=== PATIENT | male | born 1955 | race Caucasian/White ===

== ENCOUNTER 2017-09-07 23:48 | Inpatient (IN) | payer MEDICARE, OTHER ==
[~2017-09-07] VITALS: Ht 170.2 cm; Wt 112.7 kg
[~2017-09-07 23:48] MED LIST: AMLO10TA4 PO; ASPI-611 PO; ATOR40TA PO; BENA40TA2 PO; CHOL10002 PO; FURO-150 PO; INSU100V13 SQ; METO50TA7 PO; ONDA4TAB6 PO; POTA10TA10 PO
[2017-09-08 00:27] LABS: BASOPHILS % (AUTO) 0.3 % (0-1); EOSINOPHILS # (AUTO) 0.2 X10'3 (0-0.9); HEMATOCRIT 46.8 % (42.0-52.0); HEMOGLOBIN 15.7 g/dl (14.0-17.9); LYMPHOCYTES % (AUTO) 25.4 % (21-51); MEAN CORPUSCULAR HEMOGLOBIN 27.5 PG (27.0-31.0); MEAN CORPUSCULAR HGB CONC 33.5 % (33.0-36.5); MEAN CORPUSCULAR VOLUME 81.9 FL (78-98); MEAN PLATELET VOLUME 8.3 FL (7.4-10.4); MONOCYTES # (AUTO) 0.8 X10'3 (0-0.9); MONOCYTES % (AUTO) 19.3 % (2-12); PLATELET COUNT 191 X10'3 (140-440); RED BLOOD COUNT 5.71 X10'6 (4.70-6.10); RED CELL DISTRIBUTION WIDTH 15.5 % (11.5-14.5)
[2017-09-08] MEDS ORDERED: aspirin 325mg tablet PO ONE (00:40)
[2017-09-08 00:47] LABS: INR 0.9 INR; PARTIAL THROMBOPLASTIN TIME 27 SECONDS (22-32); PROTHROMBIN TIME 9.6 SECONDS (9.0-12.0)
[2017-09-08 00:55] LABS: ALANINE AMINOTRANSFERASE 28 U/L (12-78); ALBUMIN 3.1 G/DL (3.4-5.0); ALBUMIN/GLOBULIN RATIO 0.8 (1.1-1.5); ALKALINE PHOSPHATASE 153 IU/L (46-116); ANION GAP 7 (8-16); ASPARTATE AMINO TRANSFERASE 30 U/L (10-37); BILIRUBIN,TOTAL 0.4 MG/DL (0.1-1.0); BLOOD UREA NITROGEN 25 MG/DL (7-18); BUN/CREATININE RATIO 17.1 (5.4-32.0); CALCIUM 8.5 MG/DL (8.5-10.1); CHLORIDE 106 MMOL/L (99-107); CREATININE 1.46 MG/DL (0.60-1.10); GLUCOSE 272 MG/DL (70-104); POTASSIUM 3.6 MMOL/L (3.5-5.1); SODIUM 141 MMOL/L (135-145); TOTAL CARBON DIOXIDE 28.2 MMOL/L (24-32); TOTAL PROTEIN 6.8 G/DL (6.4-8.2); eGFR 49 ML/MIN
[2017-09-08 01:07] LABS: ETHANOL < 0.010 GM/DL (0.0-0.010)
[2017-09-08 02:54] LABS: URINE AMPHETAMINE SCREEN NEGATIVE (Neg); URINE BARBITUATE SCREEN NEGATIVE (Neg); URINE BENZODIAZEPINES SCREEN NEGATIVE (Neg); URINE CANNABINOID SCREEN NEGATIVE (Neg); URINE COCAINE SCREEN NEGATIVE (Neg); URINE METHADONE SCREEN NEGATIVE (Neg); URINE OPIATE SCREEN NEGATIVE (Neg); URINE PHENCYCLIDINE SCREEN NEGATIVE (Neg)
[2017-09-08] MEDS ORDERED: ondansetron/PF 4mg/2ml inj IV PRN (02:55)
[2017-09-08] MEDS ORDERED: magnesium hydroxide 30ml (MOM) UD suspension PO PRN (02:55)
[2017-09-08] MEDS ORDERED: acetaminophen 325mg tablet PO PRN ×2 (02:55)
[2017-09-08] MEDS ORDERED: mag hydrox/Alum hydrox/simeth 30ml oral suspension PO PRN (02:55)
[2017-09-08] MEDS ORDERED: insulin Lispro (HumaLOG) vial - multi-dose SQ SCH (03:05)
[2017-09-08] MEDS ORDERED: dextrose ORAL solution 15 GM/59 ML bottle PO PRN ×2 (03:05)
[2017-09-08] MEDS ORDERED: MESSAGE TO PHARMACY PO ONE (03:05)
[2017-09-08] MEDS ORDERED: dextrose 50%-water 50ml dispensing syringe IV PRN ×2 (03:05)
[2017-09-08] MEDS ORDERED: glucagon, human recombinant 1mg kit SUBCUT PRN (03:05)
[2017-09-08 04:00] VITALS: BP 155/74
[2017-09-08 05:00] VITALS: BP 135/73
[2017-09-08] MEDS: insulin pump.resvr SQ SCH ×4 (07:00→21:37)
[2017-09-08] MEDS: vitamin D (cholecalciferol) 1,000 unit tablet PO SCH (07:53)
[2017-09-08] MEDS: atorvastatin 20mg tablet PO SCH (07:55)
[2017-09-08] MEDS: metoprolol succinate 25mg (24-HOUR) SR. Tablet PO SCH (07:56)
[2017-09-08] MEDS ORDERED: aspirin 325mg tablet PO SCH (08:30)
[2017-09-08 10:00] VITALS: BP 132/69
[2017-09-08] MEDS ORDERED: niCARDipine in sodium Chloride, iso-osm 20mg/200ml bag IV ONE (10:00)
[2017-09-08] MEDS: furosemide 20MG tablet PO SCH (11:06)
[2017-09-08] MEDS: aspirin 81mg tab.chew PO SCH (11:06)
[2017-09-08] MEDS: LORazepam 2 mg/ml vial IV PRN (14:45)
[2017-09-08 18:00] VITALS: BP 151/85
[2017-09-08] MEDS ORDERED: Insulin Detemir pen SQ SCH (21:00)
[2017-09-08 22:00] VITALS: BP 131/53
[2017-09-09 02:00] VITALS: BP 137/66
[2017-09-09 05:00] VITALS: BP 131/64
[2017-09-09] MEDS: insulin pump.resvr SQ SCH ×4 (07:00→21:03)
[2017-09-09 07:03] LABS: BASOPHILS % (AUTO) 0.2 % (0-1); EOSINOPHILS # (AUTO) 0.1 X10'3 (0-0.9); EOSINOPHILS % (AUTO) 2.2 % (0-6); HEMATOCRIT 47.6 % (42.0-52.0); HEMOGLOBIN 15.9 g/dl (14.0-17.9); LYMPHOCYTES # (AUTO) 0.8 X10'3 (1.1-4.8); LYMPHOCYTES % (AUTO) 14.3 % (21-51); MEAN CORPUSCULAR HEMOGLOBIN 27.2 PG (27.0-31.0); MEAN CORPUSCULAR HGB CONC 33.3 % (33.0-36.5); MEAN CORPUSCULAR VOLUME 81.7 FL (78-98); MEAN PLATELET VOLUME 8.6 FL (7.4-10.4); MONOCYTES # (AUTO) 0.7 X10'3 (0-0.9); MONOCYTES % (AUTO) 12.5 % (2-12); NEUTROPHILS # (AUTO) 4.2 X10'3 (1.8-7.7); NEUTROPHILS % (AUTO) 70.8 % (42-75); PLATELET COUNT 176 X10'3 (140-440); RED BLOOD COUNT 5.83 X10'6 (4.70-6.10); RED CELL DISTRIBUTION WIDTH 15.8 % (11.5-14.5); WHITE BLOOD COUNT 5.9 X10'3 (4.5-11.0)
[2017-09-09] MEDS: vitamin D (cholecalciferol) 1,000 unit tablet PO SCH (07:47)
[2017-09-09] MEDS: atorvastatin 20mg tablet PO SCH (07:47)
[2017-09-09] MEDS: metoprolol succinate 25mg (24-HOUR) SR. Tablet PO SCH (07:47)
[2017-09-09] MEDS: aspirin 81mg tab.chew PO SCH (07:47)
[2017-09-09] MEDS: furosemide 20MG tablet PO SCH (07:48)
[2017-09-09] MEDS ORDERED: furosemide 20MG tablet PO SCH (08:00)
[2017-09-09 08:15] LABS: ALBUMIN 3.1 G/DL (3.4-5.0); ANION GAP 13 (8-16); BLOOD UREA NITROGEN 18 MG/DL (7-18); BUN/CREATININE RATIO 12.9 (5.4-32.0); CALCIUM 8.3 MG/DL (8.5-10.1); CHLORIDE 108 MMOL/L (99-107); CHOL/HDL RATIO 3.5 (0.00-4.99); CHOLESTEROL 112 MG/DL (0-200); GLUCOSE 114 MG/DL (70-104); HDL CHOLESTEROL 32 MG/DL (35-60); LDL CHOLESTEROL 75 MG/DL (50-100); POTASSIUM 3.5 MMOL/L (3.5-5.1); SODIUM 145 MMOL/L (135-145); TOTAL CARBON DIOXIDE 24.5 MMOL/L (24-32); TRIGLYCERIDES 70 MG/DL (20-135); eGFR 51 ML/MIN
[2017-09-09] MEDS ORDERED: aspirin 81mg tab.chew PO SCH (08:30)
[2017-09-09 10:00] VITALS: BP 100/71
[2017-09-09 18:00] VITALS: BP 158/73
[2017-09-09] MEDS ORDERED: enoxaparin 80mg/0.8ml syringe SUBCUT SCH (20:00)
[2017-09-09] MEDS ORDERED: enoxaparin 30mg/0.3ml syringe SUBCUT SCH (20:00)
[2017-09-09 22:00] VITALS: BP 125/57
[2017-09-10 02:00] VITALS: BP 135/81
[2017-09-10 05:00] VITALS: BP 135/71
[2017-09-10 06:22] LABS: BASOPHILS % (AUTO) 0.3 % (0-1); EOSINOPHILS # (AUTO) 0.1 X10'3 (0-0.9); EOSINOPHILS % (AUTO) 2.2 % (0-6); HEMATOCRIT 47.5 % (42.0-52.0); HEMOGLOBIN 15.9 g/dl (14.0-17.9); LYMPHOCYTES # (AUTO) 0.8 X10'3 (1.1-4.8); LYMPHOCYTES % (AUTO) 15.3 % (21-51); MEAN CORPUSCULAR HEMOGLOBIN 27.2 PG (27.0-31.0); MEAN CORPUSCULAR HGB CONC 33.6 % (33.0-36.5); MEAN CORPUSCULAR VOLUME 80.8 FL (78-98); MEAN PLATELET VOLUME 9.1 FL (7.4-10.4); MONOCYTES # (AUTO) 0.8 X10'3 (0-0.9); MONOCYTES % (AUTO) 15.1 % (2-12); NEUTROPHILS # (AUTO) 3.7 X10'3 (1.8-7.7); NEUTROPHILS % (AUTO) 67.1 % (42-75); PLATELET COUNT 166 X10'3 (140-440); RED BLOOD COUNT 5.87 X10'6 (4.70-6.10); RED CELL DISTRIBUTION WIDTH 15.5 % (11.5-14.5); WHITE BLOOD COUNT 5.5 X10'3 (4.5-11.0)
[2017-09-10 06:45] LABS: ALBUMIN 2.9 G/DL (3.4-5.0); ANION GAP 10 (8-16); BLOOD UREA NITROGEN 23 MG/DL (7-18); BUN/CREATININE RATIO 16.3 (5.4-32.0); CALCIUM 8.6 MG/DL (8.5-10.1); CHLORIDE 104 MMOL/L (99-107); CREATININE 1.41 MG/DL (0.60-1.10); GLUCOSE 248 MG/DL (70-104); POTASSIUM 3.7 MMOL/L (3.5-5.1); SODIUM 141 MMOL/L (135-145); TOTAL CARBON DIOXIDE 27.1 MMOL/L (24-32); eGFR 51 ML/MIN
[2017-09-10] MEDS: insulin pump.resvr SQ SCH ×4 (07:00→21:31)
[2017-09-10] MEDS: atorvastatin 20mg tablet PO SCH (07:51)
[2017-09-10] MEDS: vitamin D (cholecalciferol) 1,000 unit tablet PO SCH (07:51)
[2017-09-10] MEDS: metoprolol succinate 25mg (24-HOUR) SR. Tablet PO SCH (07:51)
[2017-09-10] MEDS: furosemide 20MG tablet PO SCH (07:52)
[2017-09-10] MEDS: LORazepam 2 mg/ml vial IV PRN (09:20)
[2017-09-10] MEDS: apixaban 2.5mg tablet PO SCH ×2 (09:20→19:53)
[2017-09-10 14:00] VITALS: BP 152/80
[2017-09-10 18:00] VITALS: BP 150/86
[2017-09-10 22:00] VITALS: BP 137/83
[2017-09-11 02:00] VITALS: BP 134/73
[2017-09-11 05:00] VITALS: BP 142/82
[2017-09-11 06:16] LABS: BASOPHILS % (AUTO) 0.1 % (0-1); EOSINOPHILS # (AUTO) 0.1 X10'3 (0-0.9); EOSINOPHILS % (AUTO) 1.8 % (0-6); HEMOGLOBIN 16.7 g/dl (14.0-17.9); LYMPHOCYTES % (AUTO) 14.3 % (21-51); MEAN CORPUSCULAR HEMOGLOBIN 27.3 PG (27.0-31.0); MEAN CORPUSCULAR HGB CONC 33.5 % (33.0-36.5); MEAN CORPUSCULAR VOLUME 81.4 FL (78-98); MEAN PLATELET VOLUME 8.8 FL (7.4-10.4); MONOCYTES # (AUTO) 0.7 X10'3 (0-0.9); MONOCYTES % (AUTO) 10.5 % (2-12); NEUTROPHILS % (AUTO) 73.3 % (42-75); PLATELET COUNT 164 X10'3 (140-440); RED BLOOD COUNT 6.14 X10'6 (4.70-6.10); RED CELL DISTRIBUTION WIDTH 15.5 % (11.5-14.5); WHITE BLOOD COUNT 6.8 X10'3 (4.5-11.0)
[2017-09-11 06:42] LABS: ALBUMIN 2.8 G/DL (3.4-5.0); ANION GAP 9 (8-16); BLOOD UREA NITROGEN 23 MG/DL (7-18); BUN/CREATININE RATIO 17.2 (5.4-32.0); CALCIUM 8.8 MG/DL (8.5-10.1); CHLORIDE 105 MMOL/L (99-107); CREATININE 1.34 MG/DL (0.60-1.10); GLUCOSE 241 MG/DL (70-104); POTASSIUM 3.7 MMOL/L (3.5-5.1); SODIUM 140 MMOL/L (135-145); TOTAL CARBON DIOXIDE 26.1 MMOL/L (24-32); eGFR 54 ML/MIN
[2017-09-11] MEDS: insulin pump.resvr SQ SCH ×3 (07:00→21:00)
[2017-09-11] MEDS: apixaban 2.5mg tablet PO SCH ×2 (09:57→19:28)
[2017-09-11] MEDS: vitamin D (cholecalciferol) 1,000 unit tablet PO SCH (09:57)
[2017-09-11] MEDS: atorvastatin 20mg tablet PO SCH (09:57)
[2017-09-11] MEDS: metoprolol succinate 25mg (24-HOUR) SR. Tablet PO SCH (09:57)
[2017-09-11] MEDS: furosemide 20MG tablet PO SCH (09:57)
[2017-09-11 10:00] VITALS: BP 139/81
[2017-09-11 18:30] VITALS: BP 149/80
[2017-09-11 22:00] VITALS: BP 153/79
[2017-09-12 05:00] VITALS: BP 156/77
[2017-09-12 06:08] LABS: BASOPHILS % (AUTO) 0.2 % (0-1); EOSINOPHILS # (AUTO) 0.1 X10'3 (0-0.9); EOSINOPHILS % (AUTO) 2.4 % (0-6); HEMOGLOBIN 15.8 g/dl (14.0-17.9); LYMPHOCYTES % (AUTO) 18.6 % (21-51); MEAN CORPUSCULAR HEMOGLOBIN 27.2 PG (27.0-31.0); MEAN CORPUSCULAR HGB CONC 33.7 % (33.0-36.5); MEAN CORPUSCULAR VOLUME 80.8 FL (78-98); MEAN PLATELET VOLUME 8.9 FL (7.4-10.4); MONOCYTES # (AUTO) 0.5 X10'3 (0-0.9); MONOCYTES % (AUTO) 9.8 % (2-12); NEUTROPHILS # (AUTO) 3.8 X10'3 (1.8-7.7); PLATELET COUNT 174 X10'3 (140-440); RED BLOOD COUNT 5.82 X10'6 (4.70-6.10); RED CELL DISTRIBUTION WIDTH 14.8 % (11.5-14.5); WHITE BLOOD COUNT 5.5 X10'3 (4.5-11.0)
[2017-09-12 06:15] LABS: ALBUMIN 2.6 G/DL (3.4-5.0); ANION GAP 12 (8-16); BLOOD UREA NITROGEN 25 MG/DL (7-18); BUN/CREATININE RATIO 19.4 (5.4-32.0); CALCIUM 8.1 MG/DL (8.5-10.1); CHLORIDE 105 MMOL/L (99-107); CREATININE 1.29 MG/DL (0.60-1.10); GLUCOSE 221 MG/DL (70-104); POTASSIUM 3.4 MMOL/L (3.5-5.1); SODIUM 143 MMOL/L (135-145); TOTAL CARBON DIOXIDE 25.6 MMOL/L (24-32); eGFR 56 ML/MIN
[2017-09-12] MEDS: insulin pump.resvr SQ SCH ×2 (07:00→12:00)
[2017-09-12] MEDS: vitamin D (cholecalciferol) 1,000 unit tablet PO SCH (08:19)
[2017-09-12] MEDS: apixaban 2.5mg tablet PO SCH (08:19)
[2017-09-12] MEDS: atorvastatin 20mg tablet PO SCH (08:19)
[2017-09-12] MEDS: metoprolol succinate 25mg (24-HOUR) SR. Tablet PO SCH (08:19)
[2017-09-12] MEDS: furosemide 20MG tablet PO SCH (08:20)
[2017-09-12 10:00] VITALS: BP 132/82
== END 2017-09-12 13:00 | DRG 65 ==
LOC: ER 23:49 → ED HOLD 09-08 02:52 → ORTHO 4S 09-08 03:30
PROVIDERS: ADMIT Internal Medicine; ATTEND Emergency Medicine
DX: I63.9 Cerebral infarction, unspecified (principal); I48.92 Unspecified atrial flutter; E10.22 Type 1 diabetes mellitus with diabetic chronic kidney disease; E10.40 Type 1 diabetes mellitus with diabetic neuropathy, unspecified; E10.65 Type 1 diabetes mellitus with hyperglycemia; G81.94 Hemiplegia, unspecified affecting left nondominant side; I25.10 Atherosclerotic heart disease of native coronary artery without angina pectoris; I44.7 Left bundle-branch block, unspecified; N18.9 Chronic kidney disease, unspecified; H54.8 Legal blindness, as defined in USA; E78.5 Hyperlipidemia, unspecified; I12.9 Hypertensive chronic kidney disease with stage 1 through stage 4 chronic kidney disease, or unspecified chronic kidney disease; R29.810 Facial weakness; R47.81 Slurred speech; I25.2 Old myocardial infarction; Z95.1 Presence of aortocoronary bypass graft; Z90.89 Acquired absence of other organs; Z79.82 Long term (current) use of aspirin; Z79.01 Long term (current) use of anticoagulants
CPT/HCPCS: 36415; 70450; 70544; 70551; 71045; 80048; 80053; 80061; 80305; 80320; 82948; 83036; 84439; 84443; 85025; 85610; 85730; 87070; 92616; 93005; 93306; 93880; 97110; 97112; 97116; 97161; 97530; 99291; J1650; J2060; J2997

== ENCOUNTER 2018-03-08 13:06 | Inpatient (IN) | payer MEDICARE, OTHER ==
[~2018-03-08] VITALS: Ht 170.2 cm; Wt 90.4 kg
[~2018-03-08 13:06] MED LIST changes: -ONDA4TAB6 PO
[2018-03-08] MEDS ORDERED: diphenhydrAMINE 50 mg/ml inj IM ONE (13:20)
[2018-03-08] MEDS ORDERED: proCHLORperazine 10 MG/2 ml inj IM ONE (13:20)
[2018-03-08] MEDS ORDERED: famotidine 20mg tablet PO ONE (13:25)
[2018-03-08] MEDS ORDERED: normal saline 1000ML IV soln IVB ONE (13:35)
[2018-03-08] MEDS ORDERED: diphenhydrAMINE 50 mg/ml inj IV ONE (14:00)
[2018-03-08] MEDS ORDERED: proCHLORperazine 10 MG/2 ml inj IV ONE (14:00)
[2018-03-08 14:10] LABS: BASOPHILS % (AUTO) 0.1 % (0-1); EOSINOPHILS % (AUTO) 0.2 % (0-6); HEMOGLOBIN 15.7 g/dl (14.0-17.9); LYMPHOCYTES # (AUTO) 0.6 X10'3 (1.1-4.8); LYMPHOCYTES % (AUTO) 4.7 % (21-51); MEAN CORPUSCULAR HGB CONC 33.5 % (33.0-36.5); MEAN CORPUSCULAR VOLUME 83.6 FL (78-98); MEAN PLATELET VOLUME 8.6 FL (7.4-10.4); MONOCYTES # (AUTO) 0.8 X10'3 (0-0.9); MONOCYTES % (AUTO) 6.3 % (2-12); NEUTROPHILS # (AUTO) 11.9 X10'3 (1.8-7.7); NEUTROPHILS % (AUTO) 88.7 % (42-75); PLATELET COUNT 210 X10'3 (140-440); RED BLOOD COUNT 5.62 X10'6 (4.70-6.10); RED CELL DISTRIBUTION WIDTH 15.1 % (11.5-14.5); WHITE BLOOD COUNT 13.4 X10'3 (4.5-11.0)
[2018-03-08 14:30] LABS: ALANINE AMINOTRANSFERASE 35 U/L (12-78); ALBUMIN 3.1 G/DL (3.4-5.0); ALBUMIN/GLOBULIN RATIO 0.8 (1.1-1.5); ALKALINE PHOSPHATASE 118 IU/L (46-116); ANION GAP 7 (8-16); ASPARTATE AMINO TRANSFERASE 36 U/L (10-37); BILIRUBIN,TOTAL 0.8 MG/DL (0.1-1.0); BLOOD UREA NITROGEN 44 MG/DL (7-18); BUN/CREATININE RATIO 23.3 (5.4-32.0); CALCIUM 8.3 MG/DL (8.5-10.1); CHLORIDE 100 MMOL/L (99-107); CREATININE 1.89 MG/DL (0.60-1.10); GLUCOSE 337 MG/DL (70-104); POTASSIUM 3.3 MMOL/L (3.5-5.1); SODIUM 136 MMOL/L (135-145); TOTAL CARBON DIOXIDE 29.1 MMOL/L (24-32); TOTAL PROTEIN 6.9 G/DL (6.4-8.2); eGFR 36 ML/MIN
[2018-03-08] MEDS ORDERED: aspirin 81mg tab.chew PO ONE (14:35)
[2018-03-08 15:41] LABS: ABG BASE EXCESS 0.9 mmol/L (-2.0-3.0); ABG HCO3 23.6 mmol/L (22.0-26.0); ABG OXYGEN SATURATION 94.6 % (95-98); ABG PCO2 (T) 32.8 mmHg (35.0-48.0); ABG PH (T) 7.475 (7.350-7.450); ABG PO2 (T) 68.3 mmHg (83-108); ALLEN'S TEST Positive; FCOHb 0.8 % (0.5-1.5); FMetHb 0.2 % (0.3-1.12); FO2Hb 93.7 % (94-100); TOTAL HEMOGLOBIN 16.1 G/dl (14.0-18.0)
[2018-03-08] MEDS: normal saline 1000ml 1,000 ML IV SCH (15:42)
[2018-03-08] MEDS ORDERED: magnesium hydroxide 30ml (MOM) UD suspension PO PRN (15:45)
[2018-03-08] MEDS ORDERED: ATOR80TA PO (15:45)
[2018-03-08] MEDS ORDERED: potassium Cl 20 mEq SR tablet PO PRN ×2 (15:45)
[2018-03-08] MEDS ORDERED: ondansetron/PF 4mg/2ml inj IV PRN (15:45)
[2018-03-08] MEDS ORDERED: mag hydrox/Alum hydrox/simeth 30ml oral suspension PO PRN (15:45)
[2018-03-08] MEDS ORDERED: acetaminophen 325mg tablet PO PRN ×2 (15:45)
[2018-03-08] MEDS ORDERED: magnesium Cl slow-release 64mg tablet PO PRN (15:45)
[2018-03-08] MEDS ORDERED: potassium Cl 40MEQ/NS 500ml 500 ML IV PRN ×2 (15:45)
[2018-03-08] MEDS ORDERED: magnesium 4gm in 100ml NS 100 ML IV PRN (15:45)
[2018-03-08] MEDS ORDERED: APIX5TAB3 PO (15:45)
[2018-03-08] MEDS ORDERED: magnesium/D5W IVPB 50 ML IV PRN (15:45)
[2018-03-08 16:12] LABS: HEMOGLOBIN A1C 7.6 % (4.5-6.2)
[2018-03-08] MEDS: metoclopramide 10mg tablet PO SCH (17:00)
[2018-03-08 19:00] VITALS: BP 157/78
[2018-03-08] MEDS ORDERED: temazepam 15mg capsule PO PRN (21:00)
[2018-03-08] MEDS ORDERED: atorvastatin 20mg tablet PO SCH (21:00)
[2018-03-08] MEDS: apixaban 5mg tablet PO SCH (21:14)
[2018-03-09] VITALS: BP 124/85
[2018-03-09 02:01] LABS: BASOPHILS % (AUTO) 0.3 % (0-1); EOSINOPHILS % (AUTO) 0.5 % (0-6); HEMATOCRIT 45.6 % (42.0-52.0); HEMOGLOBIN 15.5 g/dl (14.0-17.9); LYMPHOCYTES % (AUTO) 9.7 % (21-51); MEAN CORPUSCULAR HEMOGLOBIN 28.3 PG (27.0-31.0); MEAN CORPUSCULAR VOLUME 83.4 FL (78-98); MEAN PLATELET VOLUME 8.3 FL (7.4-10.4); MONOCYTES % (AUTO) 9.2 % (2-12); NEUTROPHILS # (AUTO) 8.3 X10'3 (1.8-7.7); NEUTROPHILS % (AUTO) 80.3 % (42-75); PLATELET COUNT 198 X10'3 (140-440); RED BLOOD COUNT 5.47 X10'6 (4.70-6.10); RED CELL DISTRIBUTION WIDTH 14.9 % (11.5-14.5); WHITE BLOOD COUNT 10.4 X10'3 (4.5-11.0)
[2018-03-09 02:16] LABS: ALANINE AMINOTRANSFERASE 36 U/L (12-78); ALBUMIN 2.8 G/DL (3.4-5.0); ALBUMIN/GLOBULIN RATIO 0.8 (1.1-1.5); ALKALINE PHOSPHATASE 103 IU/L (46-116); ANION GAP 10 (8-16); ASPARTATE AMINO TRANSFERASE 29 U/L (10-37); BILIRUBIN,TOTAL 0.7 MG/DL (0.1-1.0); BLOOD UREA NITROGEN 33 MG/DL (7-18); CALCIUM 8.2 MG/DL (8.5-10.1); CHLORIDE 108 MMOL/L (99-107); GLUCOSE 173 MG/DL (70-104); POTASSIUM 3.5 MMOL/L (3.5-5.1); SODIUM 144 MMOL/L (135-145); TOTAL CARBON DIOXIDE 26.4 MMOL/L (24-32); TOTAL PROTEIN 6.1 G/DL (6.4-8.2); eGFR 47 ML/MIN
[2018-03-09 02:19] LABS: MAGNESIUM 2.1 MG/DL (1.5-2.4)
[2018-03-09] MEDS: normal saline 1000ml 1,000 ML IV SCH (05:03)
[2018-03-09] MEDS: metoclopramide 10mg tablet PO SCH ×2 (07:00→12:00)
[2018-03-09 07:05] VITALS: BP 148/65
[2018-03-09] MEDS: apixaban 5mg tablet PO SCH (07:10)
[2018-03-09] MEDS ORDERED: aspirin 81mg tablet.DR PO SCH (08:00)
[2018-03-09] MEDS ORDERED: amLODIPine 5mg tablet PO SCH (08:00)
[2018-03-09] MEDS ORDERED: K and/or MAG REPLACEMENT MC SCH (08:00)
[2018-03-09] MEDS ORDERED: enoxaparin 40mg/0.4ml syringe SUBCUT SCH (08:00)
[2018-03-09] MEDS ORDERED: metoprolol succinate 25mg (24-HOUR) SR. Tablet PO SCH (08:00)
[2018-03-09] MEDS ORDERED: [UNRECOGNIZED DRUG - OTHER] SQ SCH (08:00)
[2018-03-09] MEDS ORDERED: lisinopril 20mg tablet PO SCH (08:00)
[2018-03-09] MEDS ORDERED: POTA20TA10 PO (10:42)
[2018-03-09] MEDS ORDERED: FURO20TA4 PO (10:42)
[2018-03-09] MEDS ORDERED: METO10TA3 PO (10:42)
[2018-03-09] MEDS ORDERED: ONDA4TAB6 PO (10:42)
[2018-03-09 11:14] VITALS: BP 151/70
== END 2018-03-09 13:21 | disposition home or self-care (01) | DRG 74 ==
LOC: ER 13:06 → OBSVTOIN 15:42 → ED HOLD 15:42 → SUR 3N 19:10
PROVIDERS: ADMIT Internal Medicine; ATTEND Internal Medicine
DX: E10.43 Type 1 diabetes mellitus with diabetic autonomic (poly)neuropathy (principal); N17.9 Acute kidney failure, unspecified; E10.22 Type 1 diabetes mellitus with diabetic chronic kidney disease; E10.65 Type 1 diabetes mellitus with hyperglycemia; E87.6 Hypokalemia; I25.10 Atherosclerotic heart disease of native coronary artery without angina pectoris; K31.84 Gastroparesis; I50.9 Heart failure, unspecified; K14.6 Glossodynia; N18.3 Chronic kidney disease, stage 3 (moderate); Z66 Do not resuscitate; Z95.1 Presence of aortocoronary bypass graft; I25.2 Old myocardial infarction; Z79.82 Long term (current) use of aspirin; Z79.4 Long term (current) use of insulin; Z79.899 Other long term (current) drug therapy; Z79.01 Long term (current) use of anticoagulants
CPT/HCPCS: 36415; 36600; 71045; 80053; 82803; 82948; 83036; 83605; 83735; 83880; 84145; 84484; 85018; 85025; 85610; 87040; 87070; 93005; 96361; 96374; 96375; 97116; 97161; 99285; J0780; J1200; J7030; J8597

== ENCOUNTER 2018-03-14 04:11 | Outpatient (CLI) | payer MEDICARE, OTHER ==
[~2018-03-14 04:11] MED LIST changes: +APIX5TAB3 PO; -ATOR40TA PO; +ATOR80TA PO; -FURO-150 PO; +FURO20TA4 PO; +ONDA4TAB6 PO; -POTA10TA10 PO; +POTA20TA10 PO
== END 2018-03-14 23:59 | disposition home or self-care (01) ==
LOC: DIABETIC 04:11
PROVIDERS: ATTEND Internal Medicine
DX: E10.9 Type 1 diabetes mellitus without complications (principal); N17.9 Acute kidney failure, unspecified; I25.10 Atherosclerotic heart disease of native coronary artery without angina pectoris; I50.9 Heart failure, unspecified; Z79.01 Long term (current) use of anticoagulants; Z79.82 Long term (current) use of aspirin; Z79.899 Other long term (current) drug therapy; Z79.4 Long term (current) use of insulin
CPT/HCPCS: G0108

== ENCOUNTER 2018-04-20 16:14 | Inpatient (IN) | payer MEDICARE, OTHER ==
[~2018-04-20] VITALS: Ht 170.2 cm; Wt 88.0 kg
[~2018-04-20 16:14] MED LIST changes: -BENA40TA2 PO; +BENA40TA73 PO
[2018-04-20 16:55] LABS: BASOPHILS % (AUTO) 0.3 % (0-1); EOSINOPHILS # (AUTO) 0.1 X10'3 (0-0.9); EOSINOPHILS % (AUTO) 2.2 % (0-6); HEMATOCRIT 46.3 % (42.0-52.0); HEMOGLOBIN 15.5 g/dl (14.0-17.9); LYMPHOCYTES # (AUTO) 1.1 X10'3 (1.1-4.8); LYMPHOCYTES % (AUTO) 17.2 % (21-51); MEAN CORPUSCULAR HEMOGLOBIN 27.7 PG (27.0-31.0); MEAN CORPUSCULAR HGB CONC 33.4 % (33.0-36.5); MEAN CORPUSCULAR VOLUME 82.9 FL (78-98); MEAN PLATELET VOLUME 8.5 FL (7.4-10.4); MONOCYTES # (AUTO) 0.7 X10'3 (0-0.9); MONOCYTES % (AUTO) 11.3 % (2-12); NEUTROPHILS # (AUTO) 4.2 X10'3 (1.8-7.7); PLATELET COUNT 229 X10'3 (140-440); RED BLOOD COUNT 5.58 X10'6 (4.70-6.10); WHITE BLOOD COUNT 6.1 X10'3 (4.5-11.0)
[2018-04-20 17:06] LABS: PARTIAL THROMBOPLASTIN TIME 29 SECONDS (22-32); PROTHROMBIN TIME 9.9 SECONDS (9.0-12.0)
[2018-04-20 17:15] LABS: ALANINE AMINOTRANSFERASE 25 U/L (12-78); ALBUMIN 3.2 G/DL (3.4-5.0); ALBUMIN/GLOBULIN RATIO 0.8 (1.1-1.5); ALKALINE PHOSPHATASE 159 IU/L (46-116); ANION GAP 10 (8-16); ASPARTATE AMINO TRANSFERASE 25 U/L (10-37); BILIRUBIN,TOTAL 0.7 MG/DL (0.1-1.0); BLOOD UREA NITROGEN 25 MG/DL (7-18); BUN/CREATININE RATIO 17.4 (5.4-32.0); CALCIUM 8.9 MG/DL (8.5-10.1); CHLORIDE 105 MMOL/L (99-107); CREATININE 1.44 MG/DL (0.60-1.10); GLUCOSE 253 MG/DL (70-104); POTASSIUM 4.1 MMOL/L (3.5-5.1); SODIUM 141 MMOL/L (135-145); TOTAL CARBON DIOXIDE 25.8 MMOL/L (24-32); TOTAL PROTEIN 7.4 G/DL (6.4-8.2); eGFR 49 ML/MIN
[2018-04-20] MEDS ORDERED: LORazepam 2 mg/ml vial IV ONE (17:20)
[2018-04-20] MEDS ORDERED: levetiracetam inj 1,500 MG in normal saline 100ml IV soln 85 ML IV SCH (17:30)
[2018-04-20] MEDS ORDERED: aspirin 300mg supp.rect RC ONE (17:45)
[2018-04-20] MEDS ORDERED: FURO-150 PO (19:20)
[2018-04-20] MEDS ORDERED: acetaminophen 325mg tablet PO PRN (21:10)
[2018-04-20] MEDS ORDERED: ondansetron/PF 4mg/2ml inj IV PRN (21:10)
[2018-04-20] MEDS ORDERED: mag hydrox/Alum hydrox/simeth 30ml oral suspension PO PRN (21:10)
[2018-04-20] MEDS ORDERED: magnesium hydroxide 30ml (MOM) UD suspension PO PRN (21:10)
[2018-04-20] MEDS ORDERED: non-formulary drug (Insulin Aspart (Novolog) 1 UNITS) SQ SCH (21:10)
[2018-04-20] MEDS ORDERED: insulin Lispro (HumaLOG) vial - multi-dose SQ PRN (21:25)
[2018-04-20] MEDS: normal saline 1000ml 1,000 ML IV SCH (21:54)
[2018-04-20 22:00] VITALS: BP 164/78
[2018-04-20] MEDS ORDERED: apixaban 5mg tablet PO ONE (22:15)
[2018-04-20] MEDS ORDERED: atorvastatin 20mg tablet PO ONE (22:15)
[2018-04-20] MEDS ORDERED: potassium chloride 10mEq ER tablet PO ONE (22:15)
[2018-04-20] MEDS: hydrALAZINE 25 MG tablet PO SCH (23:02)
[2018-04-21 02:00] VITALS: BP 129/62
[2018-04-21 06:00] VITALS: BP 163/77
[2018-04-21] MEDS ORDERED: insulin pump.resvr SQ SCH (07:00)
[2018-04-21] MEDS: insulin pump.resvr SQ SCH ×4 (07:00→21:00)
[2018-04-21] MEDS: metoprolol succinate 25mg (24-HOUR) SR. Tablet PO SCH (09:11)
[2018-04-21] MEDS: levetiracetam inj 1,000 MG in normal saline 100ml IV soln 90 ML IV SCH ×2 (09:11→20:40)
[2018-04-21] MEDS: hydrALAZINE 25 MG tablet PO SCH ×2 (09:12→20:41)
[2018-04-21] MEDS: amLODIPine 5mg tablet PO SCH (09:12)
[2018-04-21] MEDS: lisinopril 20mg tablet PO SCH (09:12)
[2018-04-21] MEDS: potassium chloride 10mEq ER tablet PO SCH (09:12)
[2018-04-21] MEDS: aspirin 81mg tab.chew PO SCH (09:13)
[2018-04-21] MEDS: apixaban 5mg tablet PO SCH ×2 (09:13→20:41)
[2018-04-21] MEDS: heparin, porcine 5000 units/ml vial SQ SCH ×2 (09:37→20:41)
[2018-04-21 10:00] VITALS: BP 143/65
[2018-04-21] MEDS: normal saline 1000ml 1,000 ML IV SCH (17:06)
[2018-04-21 18:00] VITALS: BP 130/64
[2018-04-21 20:39] VITALS: BP 149/74
[2018-04-21] MEDS ORDERED: atorvastatin 20mg tablet PO SCH (21:00)
[2018-04-21 22:00] VITALS: BP 143/73
[2018-04-22] MEDS: normal saline 1000ml 1,000 ML IV SCH (01:22)
[2018-04-22 06:00] VITALS: BP 140/69
[2018-04-22] MEDS: insulin pump.resvr SQ SCH ×2 (07:00→11:45)
[2018-04-22] MEDS: heparin, porcine 5000 units/ml vial SQ SCH (08:00)
[2018-04-22] MEDS: levetiracetam inj 1,000 MG in normal saline 100ml IV soln 90 ML IV SCH (08:19)
[2018-04-22] MEDS: apixaban 5mg tablet PO SCH (08:19)
[2018-04-22] MEDS: aspirin 81mg tab.chew PO SCH (08:19)
[2018-04-22] MEDS: hydrALAZINE 25 MG tablet PO SCH (08:20)
[2018-04-22] MEDS: metoprolol succinate 25mg (24-HOUR) SR. Tablet PO SCH (08:21)
[2018-04-22] MEDS: lisinopril 20mg tablet PO SCH (08:21)
[2018-04-22] MEDS: potassium chloride 10mEq ER tablet PO SCH (08:21)
[2018-04-22] MEDS: amLODIPine 5mg tablet PO SCH (08:21)
[2018-04-22] MEDS ORDERED: KEP500T PO (10:33)
== END 2018-04-22 12:00 | disposition home or self-care (01) | DRG 101 ==
LOC: ER 16:15 → ORTHO 4S 21:06
PROVIDERS: ADMIT Internal Medicine; ATTEND Family Medicine
PROC: 4A10X4Z Monitoring of Central Nervous Electrical Activity, External Approach (ICD-10-PCS; principal; 2018-04-20)
DX: G40.901 Epilepsy, unspecified, not intractable, with status epilepticus (principal); I13.0 Hypertensive heart and chronic kidney disease with heart failure and stage 1 through stage 4 chronic kidney disease, or unspecified chronic kidney disease; I48.92 Unspecified atrial flutter; I69.354 Hemiplegia and hemiparesis following cerebral infarction affecting left non-dominant side; N18.9 Chronic kidney disease, unspecified; E10.65 Type 1 diabetes mellitus with hyperglycemia; E10.22 Type 1 diabetes mellitus with diabetic chronic kidney disease; I25.10 Atherosclerotic heart disease of native coronary artery without angina pectoris; I48.91 Unspecified atrial fibrillation; R47.81 Slurred speech; I50.9 Heart failure, unspecified; Z66 Do not resuscitate; Z96.41 Presence of insulin pump (external) (internal); Z96.0 Presence of urogenital implants; I25.2 Old myocardial infarction; Z95.1 Presence of aortocoronary bypass graft; Z79.82 Long term (current) use of aspirin; Z79.899 Other long term (current) drug therapy; Z79.01 Long term (current) use of anticoagulants
CPT/HCPCS: 36415; 70450; 71045; 80053; 82948; 85025; 85610; 85730; 87070; 92616; 93005; 95816; 96365; 96375; 97116; 97161; 97530; 99291; A6212; J1644; J1953; J2060; J7030

== ENCOUNTER 2018-05-16 02:44 | Outpatient (CLI) | payer MEDICARE, OTHER ==
[~2018-05-16 02:44] MED LIST changes: +FURO-150 PO; -FURO20TA4 PO; +KEP500T PO; -ONDA4TAB6 PO
== END 2018-05-16 23:59 | disposition home or self-care (01) ==
LOC: DIABETIC 02:44
PROVIDERS: ATTEND Internal Medicine
DX: E10.22 Type 1 diabetes mellitus with diabetic chronic kidney disease (principal); I12.9 Hypertensive chronic kidney disease with stage 1 through stage 4 chronic kidney disease, or unspecified chronic kidney disease; N18.9 Chronic kidney disease, unspecified; Z79.82 Long term (current) use of aspirin; Z85.46 Personal history of malignant neoplasm of prostate
CPT/HCPCS: G0108

== ENCOUNTER 2018-08-23 01:25 | Outpatient (CLI) | payer MEDICARE, OTHER | END 2018-08-23 23:59 | disposition home or self-care (01) | LOC: DIABETIC 01:25 | PROVIDERS: ATTEND Internal Medicine | DX: E10.22 Type 1 diabetes mellitus with diabetic chronic kidney disease (principal); I12.9 Hypertensive chronic kidney disease with stage 1 through stage 4 chronic kidney disease, or unspecified chronic kidney disease; N18.9 Chronic kidney disease, unspecified; I25.2 Old myocardial infarction; Z79.82 Long term (current) use of aspirin; Z79.4 Long term (current) use of insulin; Z79.899 Other long term (current) drug therapy | CPT/HCPCS: G0108 ==

== ENCOUNTER 2018-12-12 02:31 | Outpatient (CLI) | payer MEDICARE | END 2018-12-12 23:59 | disposition home or self-care (01) | LOC: DIABETIC 02:31 | PROVIDERS: ATTEND Internal Medicine | DX: E10.22 Type 1 diabetes mellitus with diabetic chronic kidney disease (principal); I12.9 Hypertensive chronic kidney disease with stage 1 through stage 4 chronic kidney disease, or unspecified chronic kidney disease; N18.9 Chronic kidney disease, unspecified; Z79.82 Long term (current) use of aspirin; Z79.4 Long term (current) use of insulin | CPT/HCPCS: G0108 ==

== ENCOUNTER 2018-12-14 20:06 | Inpatient (IN) | payer MEDICARE, BC ==
[~2018-12-14] VITALS: Ht 180.3 cm; Wt 97.7 kg
[2018-12-14] MEDS ORDERED: LORazepam 2 mg/ml vial ONE (20:17)
[2018-12-14] MEDS ORDERED: LORazepam 2 mg/ml vial IV ONE (20:20)
[2018-12-14] MEDS ORDERED: hydrALAZINE 20mg/ml inj. IV ONE (20:20)
[2018-12-14] MEDS ORDERED: propofol 1000mg/100ml bottle 100 ML IV ONE (20:30)
--- NOTE | 2018-12-14 20:33 | NUR ---
pt continues to have seizure activity localized to the left side. MD aware - pt has been given 1mg ativan at 2009, 1 mg ativan at 2014, 2mg ativan at 2019 and 10mg hydralizine at 2021. MD requesting 100mg propofol drawn up to be administered by MD - medication available at bedside. RT has been paged.
[2018-12-14 20:36] LABS: BASOPHILS # (AUTO) 0.1 X10'3 (0-0.2); BASOPHILS % (AUTO) 0.4 % (0-1); EOSINOPHILS # (AUTO) 0.1 X10'3 (0-0.9); EOSINOPHILS % (AUTO) 0.9 % (0-6); HEMATOCRIT 47.6 % (42.0-52.0); HEMOGLOBIN 16.1 g/dl (14.0-17.9); LYMPHOCYTES # (AUTO) 1.2 X10'3 (1.1-4.8); LYMPHOCYTES % (AUTO) 9.9 % (21-51); MEAN CORPUSCULAR HEMOGLOBIN 27.7 PG (27.0-31.0); MEAN CORPUSCULAR HGB CONC 33.9 g/dL (33.0-36.5); MEAN CORPUSCULAR VOLUME 81.6 FL (78-98); MEAN PLATELET VOLUME 8.4 FL (7.4-10.4); MONOCYTES # (AUTO) 1.4 X10'3 (0-0.9); MONOCYTES % (AUTO) 11.1 % (2-12); NEUTROPHILS # (AUTO) 9.5 X10'3 (1.8-7.7); NEUTROPHILS % (AUTO) 77.7 % (42-75); PLATELET COUNT 249 X10'3 (140-440); RED BLOOD COUNT 5.83 X10'6 (4.70-6.10); RED CELL DISTRIBUTION WIDTH 15.4 % (11.5-14.5); WHITE BLOOD COUNT 12.3 X10'3 (4.5-11.0)
--- NOTE | 2018-12-14 20:37 | NUR ---
20MG PROPOFOL PUSHED BY MD CANTU - RT AT BEDSIDE, PT 02 SATS 100% ON NRMB
[2018-12-14] MEDS ORDERED: phenytoin sod inj 1,000 MG in normal saline 100ml IV soln 80 ML IV ONE (20:45)
--- NOTE | 2018-12-14 20:45 | NUR ---
AT BEDSIDE STATES PT HAS SOME NUMBNESS AND LOSS OF MOTION IN LEFT ARM FROM PREVIOUS CVA - NO TROUBLE WITH LEFT LEG, PT NORMALLY HAS CLEAR SPEECH
[2018-12-14] MEDS ORDERED: NS IV ONE (20:50)
[2018-12-14] MEDS ORDERED: VALPROATE SODIUM IV ONE (20:50)
[2018-12-14 20:51] LABS: ALANINE AMINOTRANSFERASE 38 U/L (12-78); ALBUMIN 3.4 G/DL (3.4-5.0); ALBUMIN/GLOBULIN RATIO 0.9 (1.1-1.5); ALKALINE PHOSPHATASE 181 IU/L (46-116); ANION GAP 13 (8-16); ASPARTATE AMINO TRANSFERASE 33 U/L (10-37); BILIRUBIN,TOTAL 0.4 MG/DL (0.1-1.0); BLOOD UREA NITROGEN 26 MG/DL (7-18); BUN/CREATININE RATIO 14.9 (5.4-32.0); CALCIUM 9.3 MG/DL (8.5-10.1); CHLORIDE 107 MMOL/L (99-107); CREATININE 1.75 MG/DL (0.60-1.10); GLUCOSE 115 MG/DL (70-104); POTASSIUM 3.9 MMOL/L (3.5-5.1); SODIUM 145 MMOL/L (135-145); TOTAL CARBON DIOXIDE 24.7 MMOL/L (24-32); TOTAL PROTEIN 7.4 G/DL (6.4-8.2); eGFR 39 ML/MIN
[2018-12-14 20:54] LABS: PARTIAL THROMBOPLASTIN TIME 29 SECONDS (22-32)
[2018-12-14] MEDS ORDERED: MIDAZolam 5mg/ml 2ml vial IV ONE (21:20)
[2018-12-14] MEDS ORDERED: midazolam 2 mg/2 ml injection IV ONE (21:30)
[2018-12-14] MEDS ORDERED: POTA10TA36 PO (21:37)
[2018-12-14] MEDS ORDERED: LEVE10002 PO (21:37)
[2018-12-14] MEDS ORDERED: HYDR-4069 PO (21:37)
[2018-12-14] MEDS ORDERED: BENZ0.5T4 PO (21:38)
--- NOTE | 2018-12-14 21:39 | NUR ---
stroke RN present at bedside - pt is more alert and speech is more clear but still slurred. pt is able to move left arm
--- NOTE | 2018-12-14 22:16 | NUR ---
pt resting comfortably. no new seizure activity. stroke RN at bedside, awaiting teleneuro consult
--- NOTE | 2018-12-14 22:52 | NUR ---
teleneuro complete - neurologist is leaning more toward seizure at this time. He would like a magnesium level ordered. ordered entered
[2018-12-14 23:03] LABS: MAGNESIUM 1.9 MG/DL (1.5-2.4)
[2018-12-14 23:28] LABS: CLARITY,URINE SLIGHTLY CLOUDY (Clear); COLOR,URINE YELLOW (Yellow); GLUCOSE, URINE NEGATIVE (Neg); KETONES,URINE NEGATIVE (Neg); LEUKOCYTE ESTERASE ,URINE NEGATIVE (Neg); NITRITES, URINE NEGATIVE (Neg); OCCULT BLOOD,URINE TRACE-LYSED (Neg); PH,URINE 5.5 (4.8-8.0); PROTEIN,URINE >=300 mg/dl (Neg); UROBILINOGEN,URINE 0.2 E.U/dL (0.2-1.0)
[2018-12-14 23:31] LABS: UA COLLECTION TYPE STRAIGHT CATH
[2018-12-14 23:35] LABS: AMORPHOUS URATES 2+; BACTERIA,URINE NONE SEEN /HPF (Neg); SQUAMOUS EPITHELIAL CELL,UR FEW /LPF (FEW)
--- NOTE | 2018-12-15 01:18 | NUR ---
pt has been resting comfortably for past couple hours. remains at bedside. pt awaiting hospitalist. pt still has not had swallow study. awaiting for sedation to wear off and pt to become more alert before attempting.
[2018-12-15] MEDS ORDERED: dextrose ORAL solution 15 GM/59 ML bottle PO PRN ×2 (01:35)
[2018-12-15] MEDS ORDERED: glucagon, human recombinant 1mg kit SUBCUT PRN (01:35)
[2018-12-15] MEDS ORDERED: acetaminophen 325mg tablet PO PRN (01:35)
[2018-12-15] MEDS ORDERED: dextrose 50%-water 50ml dispensing syringe IV PRN ×2 (01:35)
[2018-12-15] MEDS ORDERED: ondansetron/PF 4mg/2ml inj IV PRN (01:35)
[2018-12-15] MEDS ORDERED: insulin Lispro (HumaLOG) vial - multi-dose SQ SCH (01:35)
[2018-12-15] MEDS ORDERED: MESSAGE TO PHARMACY PO ONE (01:35)
[2018-12-15] MEDS ORDERED: bisacodyl 10mg suppository rectal RC PRN (01:35)
[2018-12-15] MEDS ORDERED: mag hydrox/Alum hydrox/simeth 30ml oral suspension PO PRN (01:35)
--- NOTE | 2018-12-15 02:18 | NUR ---
PATIENT REPORT RECEIVED FROM ENDY GARZA.
[2018-12-15 02:29] LABS: BASOPHILS # (AUTO) 0.1 X10'3 (0-0.2); BASOPHILS % (AUTO) 0.7 % (0-1); EOSINOPHILS % (AUTO) 0.4 % (0-6); HEMATOCRIT 41.8 % (42.0-52.0); HEMOGLOBIN 14.2 g/dl (14.0-17.9); LYMPHOCYTES # (AUTO) 0.6 X10'3 (1.1-4.8); LYMPHOCYTES % (AUTO) 7.3 % (21-51); MEAN CORPUSCULAR HEMOGLOBIN 27.9 PG (27.0-31.0); MEAN CORPUSCULAR HGB CONC 33.9 g/dL (33.0-36.5); MEAN CORPUSCULAR VOLUME 82.2 FL (78-98); MEAN PLATELET VOLUME 8.4 FL (7.4-10.4); MONOCYTES # (AUTO) 0.8 X10'3 (0-0.9); MONOCYTES % (AUTO) 8.7 % (2-12); NEUTROPHILS # (AUTO) 7.4 X10'3 (1.8-7.7); NEUTROPHILS % (AUTO) 82.9 % (42-75); PLATELET COUNT 194 X10'3 (140-440); RED BLOOD COUNT 5.09 X10'6 (4.70-6.10); RED CELL DISTRIBUTION WIDTH 15.5 % (11.5-14.5); WHITE BLOOD COUNT 8.9 X10'3 (4.5-11.0)
[2018-12-15 02:31] LABS: HEMOGLOBIN A1C 7.3 % (4.5-6.2)
[2018-12-15 02:35] LABS: ALANINE AMINOTRANSFERASE 32 U/L (12-78); ALBUMIN 2.6 G/DL (3.4-5.0); ALBUMIN/GLOBULIN RATIO 0.8 (1.1-1.5); ALKALINE PHOSPHATASE 130 IU/L (46-116); ANION GAP 5 (8-16); ASPARTATE AMINO TRANSFERASE 26 U/L (10-37); BILIRUBIN,TOTAL 0.4 MG/DL (0.1-1.0); BLOOD UREA NITROGEN 24 MG/DL (7-18); BUN/CREATININE RATIO 15.1 (5.4-32.0); CALCIUM 8.4 MG/DL (8.5-10.1); CHLORIDE 110 MMOL/L (99-107); CREATININE 1.59 MG/DL (0.60-1.10); GLUCOSE 113 MG/DL (70-104); POTASSIUM 3.7 MMOL/L (3.5-5.1); SODIUM 143 MMOL/L (135-145); TOTAL CARBON DIOXIDE 27.7 MMOL/L (24-32); TOTAL PROTEIN 5.9 G/DL (6.4-8.2); eGFR 44 ML/MIN
[2018-12-15 02:50] VITALS: BP 135/67
[2018-12-15] MEDS: normal saline 1000ml 1,000 ML IV SCH ×2 (04:33→18:13)
[2018-12-15 05:00] VITALS: BP 128/68
--- NOTE | 2018-12-15 06:39 | NUR ---
PATIENT REPORT GIVEN TO BAIRON GARZA.
[2018-12-15] MEDS ORDERED: levetiracetam 250mg tablet PO SCH (08:00)
[2018-12-15 08:24] VITALS: BP 149/76
[2018-12-15] MEDS: levetiracetam 250mg tablet PO SCH (08:28)
[2018-12-15] MEDS: furosemide 40mg tablet PO SCH (08:29)
[2018-12-15] MEDS: amLODIPine 5mg tablet PO SCH (08:29)
[2018-12-15] MEDS: apixaban 5mg tablet PO SCH ×2 (08:29→20:41)
[2018-12-15] MEDS: hydrALAZINE 25 MG tablet PO SCH ×2 (08:29→20:41)
[2018-12-15] MEDS: vitamin D (cholecalciferol) 1,000 unit tablet PO SCH (08:29)
[2018-12-15] MEDS: aspirin 81mg tab.chew PO SCH (08:29)
[2018-12-15] MEDS: lisinopril 20mg tablet PO SCH (08:30)
[2018-12-15] MEDS: metoprolol succinate 25mg (24-HOUR) SR. Tablet PO SCH (08:36)
[2018-12-15] MEDS ORDERED: potassium Cl 40MEQ/NS 500ml 500 ML IV PRN ×2 (09:05)
[2018-12-15] MEDS ORDERED: potassium Cl 20 mEq SR tablet PO PRN ×2 (09:05)
[2018-12-15] MEDS ORDERED: magnesium Cl slow-release 64mg tablet PO PRN (09:05)
[2018-12-15] MEDS ORDERED: magnesium 4gm in 100ml NS 100 ML IV PRN (09:05)
[2018-12-15 10:00] VITALS: BP 143/74
--- NOTE | 2018-12-15 13:37 | NUR ---
DM consult, patient's A1C is 7.3, patient given written DM education handout and referral to outpatient DM education class. Addendum: 12/15/18 at [address] Amended: Links added.
[2018-12-15 18:00] VITALS: BP 145/66
[2018-12-15] MEDS ORDERED: insulin glargine (Lantus) pen - multi-dose SQ SCH (21:00)
[2018-12-15] MEDS ORDERED: atorvastatin 20mg tablet PO SCH (21:00)
[2018-12-15 22:00] VITALS: BP 113/50
--- NOTE | 2018-12-15 22:49 | NUR ---
Reviewed and agree with SRN assessment findings.
[2018-12-16 02:00] VITALS: BP 120/51
[2018-12-16 05:00] VITALS: BP 145/73
--- NOTE | 2018-12-16 06:20 | NUR ---
Problems reprioritized. Patient report given, questions answered & plan of care reviewed with KAYLA DE LOS SANTOS.
--- NOTE | 2018-12-16 06:30 | NUR ---
Patient in room ORTHO 4008. I have received report from KAYLA Garcia and had the opportunity to ask questions and assume patient care.
[2018-12-16 07:03] LABS: BASOPHILS % (AUTO) 0.3 % (0-1); EOSINOPHILS # (AUTO) 0.1 X10'3 (0-0.9); EOSINOPHILS % (AUTO) 1.2 % (0-6); LYMPHOCYTES # (AUTO) 0.8 X10'3 (1.1-4.8); LYMPHOCYTES % (AUTO) 9.2 % (21-51); MEAN CORPUSCULAR HEMOGLOBIN 28.3 PG (27.0-31.0); MEAN CORPUSCULAR HGB CONC 34.1 g/dL (33.0-36.5); MEAN PLATELET VOLUME 8.1 FL (7.4-10.4); MONOCYTES % (AUTO) 10.7 % (2-12); NEUTROPHILS # (AUTO) 7.2 X10'3 (1.8-7.7); NEUTROPHILS % (AUTO) 78.6 % (42-75); PLATELET COUNT 215 X10'3 (140-440); RED BLOOD COUNT 5.31 X10'6 (4.70-6.10); RED CELL DISTRIBUTION WIDTH 15.5 % (11.5-14.5); WHITE BLOOD COUNT 9.2 X10'3 (4.5-11.0)
[2018-12-16 07:25] LABS: ALANINE AMINOTRANSFERASE 28 U/L (12-78); ALBUMIN 2.9 G/DL (3.4-5.0); ALBUMIN/GLOBULIN RATIO 0.8 (1.1-1.5); ALKALINE PHOSPHATASE 123 IU/L (46-116); ANION GAP 7 (8-16); ASPARTATE AMINO TRANSFERASE 24 U/L (10-37); BLOOD UREA NITROGEN 20 MG/DL (7-18); BUN/CREATININE RATIO 14.5 (5.4-32.0); CALCIUM 8.9 MG/DL (8.5-10.1); CHLORIDE 108 MMOL/L (99-107); CREATININE 1.38 MG/DL (0.60-1.10); GLUCOSE 63 MG/DL (70-104); POTASSIUM 3.5 MMOL/L (3.5-5.1); SODIUM 145 MMOL/L (135-145); TOTAL CARBON DIOXIDE 29.8 MMOL/L (24-32); TOTAL PROTEIN 6.7 G/DL (6.4-8.2); eGFR 52 ML/MIN
[2018-12-16] MEDS: vitamin D (cholecalciferol) 1,000 unit tablet PO SCH (07:50)
[2018-12-16] MEDS: apixaban 5mg tablet PO SCH (07:51)
[2018-12-16] MEDS: levetiracetam 250mg tablet PO SCH (07:51)
[2018-12-16] MEDS: lisinopril 20mg tablet PO SCH (07:51)
[2018-12-16] MEDS: hydrALAZINE 25 MG tablet PO SCH (07:52)
[2018-12-16] MEDS: metoprolol succinate 25mg (24-HOUR) SR. Tablet PO SCH (07:52)
[2018-12-16] MEDS: furosemide 40mg tablet PO SCH (07:52)
[2018-12-16] MEDS: aspirin 81mg tab.chew PO SCH (07:52)
[2018-12-16] MEDS: amLODIPine 5mg tablet PO SCH (07:52)
[2018-12-16] MEDS ORDERED: LEVE250T PO (09:57)
[2018-12-16 10:00] VITALS: BP 166/81
--- NOTE | 2018-12-16 11:19 | NUR ---
Pt to be discharge home with . Reviewed discharge instructions with pt and . All questions answered. IV previously removed accidently. safety maintained ambulating around the room. Pt denies pain. escorted to car via wheelchair with nurses aid.
[2018-12-17] MEDS ORDERED: DIVA500T2 PO (10:17)
== END 2018-12-16 11:17 | disposition home health service (06) | DRG 101 ==
LOC: ER 20:06 → ORTHO 4S 12-15 02:38
PROVIDERS: ADMIT Family Medicine; ATTEND Family Medicine
PROC: 4A10X4Z Monitoring of Central Nervous Electrical Activity, External Approach (ICD-10-PCS; principal; 2018-12-15)
DX: G40.911 Epilepsy, unspecified, intractable, with status epilepticus (principal); I13.0 Hypertensive heart and chronic kidney disease with heart failure and stage 1 through stage 4 chronic kidney disease, or unspecified chronic kidney disease; I69.354 Hemiplegia and hemiparesis following cerebral infarction affecting left non-dominant side; I50.20 Unspecified systolic (congestive) heart failure; G83.84 Todd's paralysis (postepileptic); Z96.41 Presence of insulin pump (external) (internal); I48.91 Unspecified atrial fibrillation; E11.22 Type 2 diabetes mellitus with diabetic chronic kidney disease; E78.00 Pure hypercholesterolemia, unspecified; N18.3 Chronic kidney disease, stage 3 (moderate); I25.10 Atherosclerotic heart disease of native coronary artery without angina pectoris; I25.2 Old myocardial infarction; Z95.1 Presence of aortocoronary bypass graft; Z79.899 Other long term (current) drug therapy; Z79.82 Long term (current) use of aspirin; Z79.4 Long term (current) use of insulin; Z79.01 Long term (current) use of anticoagulants; Z83.3 Family history of diabetes mellitus
CPT/HCPCS: 36415; 70450; 70551; 71045; 80053; 81001; 82948; 83036; 83605; 83735; 84100; 85025; 85610; 85730; 87040; 87070; 87088; 92508; 92616; 93005; 93306; 95816; 96365; 96366; 96375; 97110; 97116; 97163; 97530; 99291; 99292; G0378; J0360; J1165; J1815; J2060; J2250; J2704; J7030

== ENCOUNTER 2018-12-17 07:35 | Emergency (ER) | payer MEDICARE, BC ==
[~2018-12-17] VITALS: Ht 170.2 cm; Wt 92.0 kg
[~2018-12-17 07:35] MED LIST changes: +BENZ0.5T4 PO; +HYDR-4069 PO; -KEP500T PO; +LEVE250T PO; +POTA10TA36 PO; -POTA20TA10 PO
[2018-12-17] MEDS ORDERED: valproate sod inj 1,000 MG in normal saline 100ml IV soln 90 ML IV ONE (08:15)
[2018-12-17 10:00] VITALS: BP 164/81
[2018-12-17] MEDS ORDERED: DIVA500T2 PO (10:17)
== END 2018-12-17 10:34 | disposition home or self-care (01) ==
LOC: ER 07:35
DX: R56.9 Unspecified convulsions (principal); I25.10 Atherosclerotic heart disease of native coronary artery without angina pectoris; I11.0 Hypertensive heart disease with heart failure; I50.9 Heart failure, unspecified; E78.00 Pure hypercholesterolemia, unspecified; I25.2 Old myocardial infarction; E11.9 Type 2 diabetes mellitus without complications; Z86.73 Personal history of transient ischemic attack (TIA), and cerebral infarction without residual deficits; Z95.1 Presence of aortocoronary bypass graft; Z90.89 Acquired absence of other organs; Z79.82 Long term (current) use of aspirin; Z79.899 Other long term (current) drug therapy; Z79.4 Long term (current) use of insulin
CPT/HCPCS: 96365; 99283; J7030

== ENCOUNTER 2019-02-15 12:17 | Inpatient (IN) | payer MEDICARE, BC ==
[~2019-02-15] VITALS: Ht 170.2 cm; Wt 92.0 kg
[~2019-02-15 12:17] MED LIST changes: +DIVA500T2 PO
--- NOTE | 2019-02-15 12:23 | NUR ---
DR NICHOLS IN ROOM, LEVEL 1 STROKE AKERT ONSET OF SYMPTOMS 1 HOUR AGO
--- NOTE | 2019-02-15 12:24 | NUR ---
seizure pads placed
[2019-02-15] MEDS ORDERED: LORazepam 2 mg/ml vial IV ONE ×4 (12:25→14:30)
[2019-02-15] MEDS ORDERED: LORazepam 2 mg/ml vial ONE (12:25)
--- NOTE | 2019-02-15 12:28 | NUR ---
PT TO CT VIA [facility] WITH YASMIN GARZA ON MONITOR
[2019-02-15] MEDS ORDERED: levetiracetam inj 1,000 MG in normal saline 100ml IV soln 90 ML IV ONE (12:40)
[2019-02-15 12:46] LABS: BASOPHILS % (AUTO) 0.4 % (0-1); EOSINOPHILS # (AUTO) 0.2 X10'3 (0-0.9); EOSINOPHILS % (AUTO) 2.6 % (0-6); HEMATOCRIT 51.3 % (42.0-52.0); HEMOGLOBIN 17.1 g/dl (14.0-17.9); LYMPHOCYTES # (AUTO) 2.1 X10'3 (1.1-4.8); LYMPHOCYTES % (AUTO) 21.9 % (21-51); MEAN CORPUSCULAR HEMOGLOBIN 27.9 PG (27.0-31.0); MEAN CORPUSCULAR HGB CONC 33.5 g/dL (33.0-36.5); MEAN CORPUSCULAR VOLUME 83.5 FL (78-98); MEAN PLATELET VOLUME 8.6 FL (7.4-10.4); MONOCYTES # (AUTO) 1.1 X10'3 (0-0.9); MONOCYTES % (AUTO) 11.5 % (2-12); NEUTROPHILS % (AUTO) 63.6 % (42-75); PARTIAL THROMBOPLASTIN TIME 28 SECONDS (22-32); PLATELET COUNT 217 X10'3 (140-440); RED BLOOD COUNT 6.14 X10'6 (4.70-6.10); RED CELL DISTRIBUTION WIDTH 17.4 % (11.5-14.5); WHITE BLOOD COUNT 9.5 X10'3 (4.5-11.0)
[2019-02-15 12:49] LABS: ALANINE AMINOTRANSFERASE 56 U/L (12-78); ALBUMIN 2.9 G/DL (3.4-5.0); ALBUMIN/GLOBULIN RATIO 0.7 (1.1-1.5); ALKALINE PHOSPHATASE 154 IU/L (46-116); ANION GAP 12 (8-16); ASPARTATE AMINO TRANSFERASE 44 U/L (10-37); BILIRUBIN,TOTAL 0.4 MG/DL (0.1-1.0); BLOOD UREA NITROGEN 22 MG/DL (7-18); BUN/CREATININE RATIO 14.8 (5.4-32.0); CALCIUM 8.8 MG/DL (8.5-10.1); CHLORIDE 111 MMOL/L (99-107); CREATININE 1.49 MG/DL (0.60-1.10); GLUCOSE 92 MG/DL (70-104); PHOSPHORUS 2.7 MG/DL (2.3-4.5); POTASSIUM 4.1 MMOL/L (3.5-5.1); SODIUM 148 MMOL/L (135-145); TOTAL CARBON DIOXIDE 25.5 MMOL/L (24-32); TOTAL PROTEIN 7.1 G/DL (6.4-8.2); VALPROATE 59 UG/ML (50-100); eGFR 47 ML/MIN
--- NOTE | 2019-02-15 13:08 | NUR ---
TELENEURO IN PROGRESS, STROKE RN BABAK IN ROOM ANSD IN ROOM
[2019-02-15] MEDS ORDERED: divalproex sodium 500mg tablet.DR PO ONE (13:20)
[2019-02-15] MEDS ORDERED: valproate sod inj 500 MG in normal saline 100ml IV soln 95 ML IV ONE (13:25)
--- NOTE | 2019-02-15 13:30 | NUR ---
PER MD NICHOLS INSULIN PUMP TURNED OFF
--- NOTE | 2019-02-15 13:53 | NUR ---
HERE FOR CT OF CHEST, TECH TO COME BACK ATER LALPROIC ACID INFUSED PER MD: PATIENT STILL TWITCHING, LESS TWITCHING OF FACE: ORAL DEEP SX N WITH ALLA; 3 TIMES, MD AWARE PATIENT HAS A POSITIVE GAG, SECRETIONS POOLING IN LEFT MOUTH AND ORAPHARYNX
[2019-02-15] MEDS ORDERED: dextrose 50%-water 50ml dispensing syringe IV ONE (14:25)
--- NOTE | 2019-02-15 14:25 | NUR ---
DR NICHOLS IN ROOM TALKING TO REGARDING CODE STATUS: DNR WITH AGGRGESSIVE TREATMENT
--- NOTE | 2019-02-15 14:26 | NUR ---
DEEP OOROPHARYNGEAL SXN X 3
--- NOTE | 2019-02-15 14:29 | NUR ---
INFORMEDBLOOD GLUCOSE 63, 1/2 AMP D 50 GIVEN
--- NOTE | 2019-02-15 14:33 | NUR ---
LOGAN [phone]
--- NOTE | 2019-02-15 15:22 | NUR ---
no sign of seizure activity at this time, notified
--- NOTE | 2019-02-15 15:25 | NUR ---
to ct scan with patient monitored on [facility]
[2019-02-15] MEDS ORDERED: HYDROcodone/acetaminophen 5mg/325mg tablet PO PRN (15:45)
[2019-02-15] MEDS ORDERED: normal saline 1000ml 1,000 ML IV SCH (15:45)
[2019-02-15] MEDS ORDERED: magnesium hydroxide 30ml (MOM) UD suspension PO PRN (15:45)
[2019-02-15] MEDS ORDERED: HYDROcodone/acetaminophen 10/325mg tab PO PRN (15:45)
[2019-02-15] MEDS ORDERED: mag hydrox/Alum hydrox/simeth 30ml oral suspension PO PRN (15:45)
[2019-02-15] MEDS ORDERED: ondansetron/PF 4mg/2ml inj IV PRN (15:45)
[2019-02-15] MEDS ORDERED: acetaminophen 325mg tablet PO PRN ×2 (15:45)
--- NOTE | 2019-02-15 15:46 | NUR ---
BACK FROM CT CHEST, NO SEIZURE ACTIVITY NOTED
[2019-02-15] MEDS ORDERED: LEVE500T99 PO (15:52)
[2019-02-15] MEDS ORDERED: DIVA-76 PO (15:56)
--- NOTE | 2019-02-15 15:57 | NUR ---
LEVEL ONE STROKE ALERT CALLED OFF, NO SEIZURE ACTIVITY NOTED AT THIS TIME
[2019-02-15 16:00] LABS: CLARITY,URINE CLEAR (Clear); COLOR,URINE YELLOW (Yellow); GLUCOSE, URINE 250 mg/dl (Neg); KETONES,URINE NEGATIVE (Neg); LEUKOCYTE ESTERASE ,URINE NEGATIVE (Neg); NITRITES, URINE NEGATIVE (Neg); OCCULT BLOOD,URINE TRACE-LYSED (Neg); PROTEIN,URINE >=300 mg/dl (Neg)
--- NOTE | 2019-02-15 16:03 | NUR ---
hospitalist paged dr lagos
[2019-02-15 16:06] LABS: UA COLLECTION TYPE FOLEY CATH
[2019-02-15 16:08] LABS: BACTERIA,URINE FEW /HPF (Neg); SQUAMOUS EPITHELIAL CELL,UR FEW /LPF (FEW)
--- NOTE | 2019-02-15 16:23 | NUR ---
patient is drowsy: per md order: patient received 4 mg iv ativan; one gram of keppra iv, and 500 mg of iv valproic acid; no seizure activty noted at this time, seizure precautions including seizure pads in place, at bedside
--- NOTE | 2019-02-15 16:32 | NUR ---
REPORT GIVEN TO RN MARIAELENA: SHE IS AWARE THAT PATIE T FAILED HIS INITIAL SWALLOW EVAL DUE TO HIS INABILITY TO MANAGE HIS SECRETIONS, THAT THE PATIENT WOULD LIIKE TO BE A DNR PER HIS WISHES VIA HIS , NOT A FULL CODE, THAT HOSPITALIST WAS PAGED FOR POTENTIAL CHANGE OF DIET, CODE STATUS, AND IV FLUIDS
[2019-02-15] MEDS ORDERED: dextrose 5%-1/4 normal saline 1,000 ML IV SCH (16:35)
[2019-02-15 16:50] VITALS: BP 157/81
[2019-02-15 17:15] LABS: HEMOGLOBIN A1C 6.9 % (4.5-6.2)
[2019-02-15] MEDS ORDERED: CefTRIAXone/D5W-Rocephin 1gm 50 ML IV ONE (18:15)
[2019-02-15] MEDS ORDERED: furosemide 40mg/4ml inj IV ONE (18:15)
[2019-02-15] MEDS ORDERED: glucagon, human recombinant 1mg kit SUBCUT PRN (18:20)
[2019-02-15] MEDS ORDERED: dextrose 50%-water 50ml dispensing syringe IV PRN ×2 (18:20)
[2019-02-15] MEDS ORDERED: dextrose ORAL solution 15 GM/59 ML bottle PO PRN ×2 (18:20)
[2019-02-15] MEDS ORDERED: MESSAGE TO PHARMACY PO ONE (18:20)
--- NOTE | 2019-02-15 18:22 | NUR ---
Patient report given to Elizabeth GARZA
--- NOTE | 2019-02-15 18:47 | NUR ---
Dr. Landa came to see patient and wants ordered keppra 1000mg bid, and depakote 500mg bid. I also had the order IV forms since patient cannot swallow. Dr. Landa DC'd MRI he thinks patient had seizures.
[2019-02-15] MEDS ORDERED: levetiracetam 250mg tablet PO SCH ×2 (20:00→21:00)
[2019-02-15] MEDS ORDERED: levetiracetam inj 1,000 MG in normal saline 100ml IV soln 90 ML IV SCH (20:00)
[2019-02-15] MEDS: potassium chloride 10mEq ER tablet PO SCH (20:00)
--- NOTE | 2019-02-15 20:15 | NUR ---
Spoke with night time MD about patients NPO status but patient has Eliquis ordered. MD said to give medication and do not hold it.
[2019-02-15] MEDS: apixaban 5mg tablet PO SCH (20:29)
--- NOTE | 2019-02-15 20:30 | NUR ---
Patient with possible diagnosis of pneumonia and has been coughing quite a bit but he has a gag reflex, and able to tolerate nectar thick liquid without any increase of coughing compared to before swallow eval done. We are going to give him his Elequist and hold all other po medicine and have ST do their assessment tomorrow. Addendum: 02/15/19 at 2032 by Bertha Frazier RN Amended: Links added. Addendum: 02/15/19 at 2208 by Bertha Frazier RN DONE AT 2019
[2019-02-15] MEDS: atorvastatin 20mg tablet PO SCH (20:32)
[2019-02-15] MEDS: valproate sod inj 500 MG in normal saline 100ml IV soln 95 ML IV SCH (20:56)
[2019-02-15] MEDS: insulin glargine (Lantus) pen - multi-dose SQ SCH (21:00)
[2019-02-15 22:00] VITALS: BP 172/85
--- NOTE | 2019-02-15 22:10 | NUR ---
About this time patient used his call light and I found him standing at edge of the bed with request to have help to urinate. His bottom bed rails were not up and there was no bed alarm on at that time. I assisted him back to bed and he definitely has left sided weakness but was able to help me get him into bed. I adjusted the f/c, and informed him of the catheter in place so he does not have to worry about getting oob to void. I reorientated him to use the call light and not to get our of bed on his own and put all 4 siderails up for safety and seizure precautions. I raised the head of the bed up to 45 degrees and turned the bed alarm on. I also informed the pt's nurse Elizabeth of what happened.
[2019-02-16] VITALS (7 sets, daily range): BP systolic 147–193; BP diastolic 70–100
[2019-02-16] MEDS ORDERED: normal saline 1000ml 1,000 ML IV SCH (04:20)
[2019-02-16] MEDS ORDERED: metoprolol succinate 25mg (24-HOUR) SR. Tablet PO ONE (05:20)
[2019-02-16] MEDS: metoprolol succinate 25mg (24-HOUR) SR. Tablet PO SCH (05:29)
--- NOTE | 2019-02-16 06:25 | NUR ---
Patient in room ORTHO 4009. I have received report from Elizabeth GARZA and had the opportunity to ask questions and assume patient care.
--- NOTE | 2019-02-16 06:28 | NUR ---
Problems reprioritized. Patient report given, questions answered & plan of care reviewed with Shari GARZA.
[2019-02-16] MEDS: levetiracetam-NS 1000mg/100ml 100 ML IV SCH ×2 (07:22→20:32)
[2019-02-16] MEDS: furosemide 40mg/4ml inj IV SCH (07:30)
[2019-02-16] MEDS: insulin Lispro (HumaLOG) vial - multi-dose SQ SCH ×4 (08:25→20:51)
[2019-02-16] MEDS: potassium chloride 10mEq ER tablet PO SCH ×2 (08:28→20:00)
[2019-02-16] MEDS: aspirin 81mg tablet.DR PO SCH (08:29)
[2019-02-16] MEDS: apixaban 5mg tablet PO SCH ×2 (08:29→20:32)
[2019-02-16] MEDS ORDERED: divalproex sodium 500mg tablet.DR PO SCH ×2 (08:30)
[2019-02-16] MEDS: CefTRIAXone/D5W-Rocephin 1gm 50 ML IV SCH (08:32)
[2019-02-16] MEDS: valproate sod inj 500 MG in normal saline 100ml IV soln 95 ML IV SCH ×2 (09:19→19:20)
--- NOTE | 2019-02-16 12:30 | NUR ---
DM consult: Pt with A1c 6.9; DM ed not warranted at this time. Will continue to follow. Addendum: 02/16/19 at [address] Amended: Links added.
--- NOTE | 2019-02-16 14:30 | NUR ---
Informed patients Nurse that Thoracentesis will have to be delayed due to patient receiving Eliquis and ASA This morning. Eliquis needs to be held for 24-48hr prior to procedure. Floor Nurse informed and floor Nurse sent page to contact Edgar to inform him of this.
--- NOTE | 2019-02-16 14:34 | NUR ---
PAGER ID: [phone] MESSAGE: shima Bautista in IR, can you call me re the thoracentesis? Thank you Shari #[phone]
--- NOTE | 2019-02-16 15:43 | NUR ---
PAGER ID: [phone] MESSAGE: Dr. Hernández, [place] in [id number] Mr. Nelson, did have another episode of rapid eye blinking, chomping, lasting less than 2 min @ 16:33. Symptoms seem to have resolved now. Shari Addendum: 02/16/19 at 1700 by Shari Olguin RN corrected time 15:33
[2019-02-16] MEDS: LORazepam 2 mg/ml vial IV PRN ×2 (16:07→17:51)
--- NOTE | 2019-02-16 16:07 | NUR ---
Pt began to have rapid eye blinking and chomping movements again, ativan given, pt able to communicate with nodding his head, symptoms have resolved, pt is resting comfortably now
--- NOTE | 2019-02-16 18:17 | NUR ---
Problems reprioritized. Patient report given, questions answered & plan of care reviewed with Radha GARZA.
--- NOTE | 2019-02-16 18:38 | NUR ---
RC'D VERBAL REPORT FROM JORDON AND ASSUMED CARE OF PATIENT.
[2019-02-16] MEDS: lactobacillus rhamnosus 10,000 MMU CELLS/CAPSULE PO SCH (20:00)
[2019-02-16] MEDS: atorvastatin 20mg tablet PO SCH (20:37)
[2019-02-16] MEDS: insulin glargine (Lantus) pen - multi-dose SQ SCH (20:52)
[2019-02-17] VITALS: BP 150/80
--- NOTE | 2019-02-17 00:29 | NUR ---
ink technician called and informed me that patient has converted from paced with afib and a BBB from earlier in the shift to Sinus rhythm, paced with a BBB now.
--- NOTE | 2019-02-17 01:30 | NUR ---
C/O BACK PAIN AND HELPED UP INTO RECLINER FOR COMFORT TO SLEEP. UNSTEADY GAIT WITH 2 ASSIST. POSITIONED FOR COMFORT STATED A LOT BETTER NOW. ASLEEP ALMOST IMMEDIATELY. PATIENT IN VIEW OF NURSING STATION, CALL LIGHT IN REACH.
--- NOTE | 2019-02-17 04:25 | NUR ---
telephony engineer called to report a run of 7 beat VT.
--- NOTE | 2019-02-17 04:32 | NUR ---
Attempted to call Dr. Miller regarding run of VT 7 beats no answer, will call back. VSS 161/76 and hr 79 and 100% 2liters nc.
[2019-02-17] MEDS ORDERED: potassium Cl 20 mEq SR tablet PO PRN ×2 (04:50)
[2019-02-17] MEDS ORDERED: magnesium 4gm in 100ml NS 100 ML IV PRN (04:50)
[2019-02-17] MEDS ORDERED: magnesium Cl slow-release 64mg tablet PO PRN (04:50)
[2019-02-17] MEDS ORDERED: potassium CL 10mEq/100ml bag 100 ML IV PRN (04:50)
--- NOTE | 2019-02-17 04:51 | NUR ---
I got a hold of Dr. Miller and he gave me orders to check the potassium and magnesium and order electrolyte protocol.
--- NOTE | 2019-02-17 06:00 | NUR ---
AMBULATED WITH 2 ASSIST TO VOID IN BATHROOM. PATIENT UNSTEADY TO AMBULATE WITH JUST ONE. VOIDED LARGE AMT TEA COLORED URINE IN THE TOILET AND BACK TO RECLINER AT BEDSIDE. PATIENT WANTED UP EARLIER IN SHIFT D/T BACK PAIN AND HAS BEEN SLEEPING COMFORTABLY IN THE RECLINER. DENIES PAIN OR DISCOMFORT, VERY PLEASANT AND JOKING WITH STAFF THIS MORNING
--- NOTE | 2019-02-17 06:05 | NUR ---
Patient in room ORTHO 4009. I have received report from Radha GARZA and had the opportunity to ask questions and assume patient care.
[2019-02-17 06:29] LABS: MAGNESIUM 1.9 MG/DL (1.5-2.4); POTASSIUM 3.9 MMOL/L (3.5-5.1)
[2019-02-17 08:00] VITALS: BP 150/80
[2019-02-17] MEDS: potassium chloride 10mEq ER tablet PO SCH ×2 (08:00→20:23)
[2019-02-17] MEDS: lactobacillus rhamnosus 10,000 MMU CELLS/CAPSULE PO SCH ×2 (08:00→20:23)
[2019-02-17] MEDS: levetiracetam-NS 1000mg/100ml 100 ML IV SCH ×2 (08:03→20:18)
[2019-02-17] MEDS: insulin Lispro (HumaLOG) vial - multi-dose SQ SCH ×4 (09:40→21:33)
[2019-02-17] MEDS: furosemide 40mg/4ml inj IV SCH (09:44)
[2019-02-17] MEDS: CefTRIAXone/D5W-Rocephin 1gm 50 ML IV SCH (09:51)
[2019-02-17 10:08] LABS: ALBUMIN 2.4 G/DL (3.4-5.0); ANION GAP 14 (8-16); BLOOD UREA NITROGEN 29 MG/DL (7-18); BUN/CREATININE RATIO 20.1 (5.4-32.0); CALCIUM 8.8 MG/DL (8.5-10.1); CHLORIDE 109 MMOL/L (99-107); CREATININE 1.44 MG/DL (0.60-1.10); GLUCOSE 264 MG/DL (70-104); SODIUM 146 MMOL/L (135-145); TOTAL CARBON DIOXIDE 22.7 MMOL/L (24-32); eGFR 49 ML/MIN
[2019-02-17] MEDS: metoprolol succinate 25mg (24-HOUR) SR. Tablet PO SCH (10:17)
[2019-02-17] MEDS: valproate sod inj 500 MG in normal saline 100ml IV soln 95 ML IV SCH ×2 (10:30→21:20)
[2019-02-17 12:00] VITALS: BP 170/76
[2019-02-17 16:00] VITALS: BP 163/76
[2019-02-17] MEDS: LORazepam 2 mg/ml vial IV PRN (17:53)
[2019-02-17 18:00] VITALS: BP 163/76
--- NOTE | 2019-02-17 18:11 | NUR ---
Problems reprioritized. Patient report given, questions answered & plan of care reviewed with Elizabeth GARZA.
--- NOTE | 2019-02-17 18:13 | NUR ---
Patient in room ORTHO 4009. I have received report from Shari GARZA and had the opportunity to ask questions and assume patient care.
[2019-02-17] MEDS: atorvastatin 20mg tablet PO SCH (20:23)
[2019-02-17] MEDS: insulin glargine (Lantus) pen - multi-dose SQ SCH (21:32)
[2019-02-17 22:00] VITALS: BP 170/87
[2019-02-18 02:16] VITALS: BP 155/81
[2019-02-18 06:00] VITALS: BP 162/68
--- NOTE | 2019-02-18 06:00 | NUR ---
Patient in room ORTHO 4009. I have received report from and had the opportunity to ask questions and assume patient care KAYLA Johnson
[2019-02-18 06:21] LABS: MAGNESIUM 2.1 MG/DL (1.5-2.4); POTASSIUM 3.3 MMOL/L (3.5-5.1)
--- NOTE | 2019-02-18 06:22 | NUR ---
Problems reprioritized. Patient report given, questions answered & plan of care reviewed with Tita GARZA.
[2019-02-18] MEDS: LORazepam 2 mg/ml vial IV PRN (07:31)
[2019-02-18] MEDS: furosemide 40mg/4ml inj IV SCH (07:52)
[2019-02-18] MEDS: potassium chloride 10mEq ER tablet PO SCH ×2 (07:52→21:09)
[2019-02-18] MEDS: lactobacillus rhamnosus 10,000 MMU CELLS/CAPSULE PO SCH ×2 (07:52→21:08)
[2019-02-18] MEDS: valproate sod inj 500 MG in normal saline 100ml IV soln 95 ML IV SCH ×2 (07:53→20:58)
[2019-02-18] MEDS: metoprolol succinate 25mg (24-HOUR) SR. Tablet PO SCH (07:53)
[2019-02-18] MEDS: aspirin 81mg tablet.DR PO SCH (08:00)
[2019-02-18] MEDS: levetiracetam-NS 1000mg/100ml 100 ML IV SCH ×2 (08:00→20:15)
[2019-02-18] MEDS: apixaban 5mg tablet PO SCH ×2 (08:00→20:00)
[2019-02-18] MEDS: CefTRIAXone/D5W-Rocephin 1gm 50 ML IV SCH (08:00)
[2019-02-18 10:00] VITALS: BP 178/80
[2019-02-18] MEDS: insulin Lispro (HumaLOG) vial - multi-dose SQ SCH ×2 (14:57→19:37)
--- NOTE | 2019-02-18 16:23 | NUR ---
7 beat run V-tach. . Pt was A/O, responsive, answering MRI questions appropriately when telebox called. No SOB, resp distress, denies CP. No s/s of distress noted. MD Hernández paged/notified.
[2019-02-18 18:00] VITALS: BP 170/97
[2019-02-18] MEDS: atorvastatin 20mg tablet PO SCH (21:10)
[2019-02-18 22:00] VITALS: BP 150/79
[2019-02-18] MEDS: insulin glargine (Lantus) pen - multi-dose SQ SCH (22:08)
[2019-02-19] VITALS (8 sets, daily range): BP systolic 140–165; BP diastolic 9–90
[2019-02-19] MEDS: levetiracetam-NS 1000mg/100ml 100 ML IV SCH (08:23)
[2019-02-19] MEDS: CefTRIAXone/D5W-Rocephin 1gm 50 ML IV SCH (08:23)
[2019-02-19] MEDS: valproate sod inj 500 MG in normal saline 100ml IV soln 95 ML IV SCH (08:23)
[2019-02-19] MEDS: metoprolol succinate 25mg (24-HOUR) SR. Tablet PO SCH (08:24)
[2019-02-19] MEDS: lactobacillus rhamnosus 10,000 MMU CELLS/CAPSULE PO SCH ×2 (08:24→21:04)
[2019-02-19] MEDS: furosemide 40mg/4ml inj IV SCH (08:24)
[2019-02-19] MEDS: potassium chloride 10mEq ER tablet PO SCH ×2 (08:24→21:06)
[2019-02-19] MEDS: insulin Lispro (HumaLOG) vial - multi-dose SQ SCH ×3 (08:30→19:28)
[2019-02-19 08:38] LABS: ALBUMIN 2.4 G/DL (3.4-5.0); ANION GAP 5 (8-16); BLOOD UREA NITROGEN 26 MG/DL (7-18); BUN/CREATININE RATIO 20.8 (5.4-32.0); CALCIUM 8.8 MG/DL (8.5-10.1); CHLORIDE 110 MMOL/L (99-107); CREATININE 1.25 MG/DL (0.60-1.10); GLUCOSE 100 MG/DL (70-104); MAGNESIUM 2.1 MG/DL (1.5-2.4); POTASSIUM 3.4 MMOL/L (3.5-5.1); SODIUM 148 MMOL/L (135-145); TOTAL CARBON DIOXIDE 32.7 MMOL/L (24-32); eGFR 58 ML/MIN
[2019-02-19 08:52] LABS: BASOPHILS % (AUTO) 0.5 % (0-1); EOSINOPHILS # (AUTO) 0.3 X10'3 (0-0.9); EOSINOPHILS % (AUTO) 3.9 % (0-6); HEMATOCRIT 53.5 % (42.0-52.0); HEMOGLOBIN 17.6 g/dl (14.0-17.9); LYMPHOCYTES # (AUTO) 1.1 X10'3 (1.1-4.8); LYMPHOCYTES % (AUTO) 16.1 % (21-51); MEAN CORPUSCULAR HEMOGLOBIN 27.6 PG (27.0-31.0); MEAN CORPUSCULAR HGB CONC 32.9 g/dL (33.0-36.5); MEAN PLATELET VOLUME 8.7 FL (7.4-10.4); MONOCYTES # (AUTO) 0.7 X10'3 (0-0.9); MONOCYTES % (AUTO) 10.9 % (2-12); NEUTROPHILS # (AUTO) 4.7 X10'3 (1.8-7.7); NEUTROPHILS % (AUTO) 68.6 % (42-75); PLATELET COUNT 156 X10'3 (140-440); RED BLOOD COUNT 6.37 X10'6 (4.70-6.10); RED CELL DISTRIBUTION WIDTH 17.5 % (11.5-14.5); WHITE BLOOD COUNT 6.8 X10'3 (4.5-11.0)
--- NOTE | 2019-02-19 11:40 | NUR ---
IR in with patient
--- NOTE | 2019-02-19 12:03 | NUR ---
Xray in room
--- NOTE | 2019-02-19 12:03 | NUR ---
Page to Dr. Hernández MESSAGE: [phone] Oneil Nelson When would you like the Eliquis, and ASA restarted, 750mls off the Thora. Kelsi [phone]
[2019-02-19 12:56] LABS: GLUCOSE,BODY FLUID 178 MG/DL
[2019-02-19] MEDS: aspirin 81mg tablet.DR PO SCH (13:47)
[2019-02-19] MEDS: apixaban 5mg tablet PO SCH ×2 (13:47→21:04)
[2019-02-19 14:05] LABS: BF RBC COUNT 4750 /CU MM; BF WBC COUNT 640 /CU MM (0-1000); BFAPPEAR HAZY; BFCOLOR YELLOW; BFVOLUME 5 ML; LYMPHOCYTES,BODY FLUID 73 %; MONOCYTES,BODY FLUID 14 %; NEUTROPHILS,BODY FLUID 13 %
[2019-02-19 14:12] LABS: BF MESOTHELIAL CELLS FEW
--- NOTE | 2019-02-19 18:45 | NUR ---
Report to Jeanette GARZA
[2019-02-19] MEDS ORDERED: valproate sod 250mg/5ml UD oral syrup PO SCH (20:00)
[2019-02-19] MEDS ORDERED: levetiracetam 100mg/ml oral solution 5ml UD cup PO SCH (20:00)
[2019-02-19] MEDS: atorvastatin 20mg tablet PO SCH (21:03)
[2019-02-19] MEDS: insulin glargine (Lantus) pen - multi-dose SQ SCH (21:06)
[2019-02-20 02:00] VITALS: BP 153/82
--- NOTE | 2019-02-20 02:52 | NUR ---
report from Telemetry : there was a 9 beat run of wide complex SVT. Pt was sitting in recliner sleeping, then awoke and tried to move up/sit up in chair. pt is asymptomatic, no pain, no discomfort, will continue to monitor.
[2019-02-20 06:00] VITALS: BP 116/80
--- NOTE | 2019-02-20 06:53 | NUR ---
REPORT GIVEN TO KAYLA HAWKINS.
[2019-02-20] MEDS ORDERED: divalproex sodium 500mg tablet.DR PO SCH (07:56)
[2019-02-20] MEDS ORDERED: levetiracetam 250mg tablet PO SCH (07:57)
[2019-02-20] MEDS: apixaban 5mg tablet PO SCH (09:48)
[2019-02-20] MEDS: aspirin 81mg tablet.DR PO SCH (09:48)
[2019-02-20] MEDS: potassium chloride 10mEq ER tablet PO SCH (09:48)
[2019-02-20] MEDS: lactobacillus rhamnosus 10,000 MMU CELLS/CAPSULE PO SCH (09:49)
[2019-02-20] MEDS: metoprolol succinate 25mg (24-HOUR) SR. Tablet PO SCH (09:50)
[2019-02-20] MEDS: furosemide 40mg/4ml inj IV SCH (09:50)
[2019-02-20 10:14] LABS: POTASSIUM 3.4 MMOL/L (3.5-5.1)
[2019-02-20] MEDS: insulin Lispro (HumaLOG) vial - multi-dose SQ SCH ×2 (10:59→15:30)
--- NOTE | 2019-02-20 15:40 | NUR ---
PT DC to [facility]. VSS, BG elevated, HR 79-80, RR 16 even unlabored. Pt transferred safely to . Escorted ROMI by transport service. Report given to Mary/Dewayne Greene.
== END 2019-02-20 15:30 | DRG 291 ==
LOC: ER 12:17 → ORTHO 4S 16:04 → OBSVTOIN 16:04 → ORTHO 4S 17:00
PROVIDERS: ADMIT Family Medicine; ATTEND Family Medicine
PROC: 0W9B3ZZ Drainage of Left Pleural Cavity, Percutaneous Approach (ICD-10-PCS; principal; 2019-02-19)
DX: I13.0 Hypertensive heart and chronic kidney disease with heart failure and stage 1 through stage 4 chronic kidney disease, or unspecified chronic kidney disease (principal); I50.33 Acute on chronic diastolic (congestive) heart failure; E87.1 Hypo-osmolality and hyponatremia; I69.354 Hemiplegia and hemiparesis following cerebral infarction affecting left non-dominant side; J91.8 Pleural effusion in other conditions classified elsewhere; I48.91 Unspecified atrial fibrillation; N18.3 Chronic kidney disease, stage 3 (moderate); E11.22 Type 2 diabetes mellitus with diabetic chronic kidney disease; E78.00 Pure hypercholesterolemia, unspecified; Z96.41 Presence of insulin pump (external) (internal); R13.10 Dysphagia, unspecified; E78.5 Hyperlipidemia, unspecified; G40.909 Epilepsy, unspecified, not intractable, without status epilepticus; I25.10 Atherosclerotic heart disease of native coronary artery without angina pectoris; Z66 Do not resuscitate; Z79.4 Long term (current) use of insulin; I25.2 Old myocardial infarction; Z95.1 Presence of aortocoronary bypass graft; Z83.3 Family history of diabetes mellitus; Z79.899 Other long term (current) drug therapy; Z79.01 Long term (current) use of anticoagulants
CPT/HCPCS: 32555; 36415; 70450; 70544; 70551; 71045; 71046; 71250; 80048; 80053; 80164; 81001; 82945; 82948; 83036; 83735; 83880; 84100; 84132; 84484; 85025; 85610; 85730; 87070; 87088; 89051; 92508; 92616; 93005; 96365; 96375; 96376; 97110; 97116; 97163; 97530; 99291; G0378; J0696; J1815; J1940; J1953; J2060; J7030

== ENCOUNTER 2019-03-20 04:57 | Outpatient (CLI) | payer MEDICARE, BC ==
[~2019-03-20 04:57] MED LIST changes: -AMLO10TA4 PO; -BENZ0.5T4 PO; +DIVA-76 PO; -DIVA500T2 PO; -LEVE250T PO; +LEVE500T99 PO
== END 2019-03-20 23:59 | disposition home or self-care (01) ==
LOC: DIABETIC 04:57
PROVIDERS: ATTEND Internal Medicine
DX: E10.22 Type 1 diabetes mellitus with diabetic chronic kidney disease (principal); I12.9 Hypertensive chronic kidney disease with stage 1 through stage 4 chronic kidney disease, or unspecified chronic kidney disease; N18.9 Chronic kidney disease, unspecified; Z79.4 Long term (current) use of insulin; Z79.899 Other long term (current) drug therapy
CPT/HCPCS: G0108

== ENCOUNTER 2019-03-23 22:49 | Emergency (ER) | payer MEDICARE, BC ==
[~2019-03-23] VITALS: Ht 177.8 cm; Wt 95.4 kg
--- NOTE | 2019-03-23 22:50 | NUR ---
Arrived for level 1 stroke alert but on arrival patient was having a typical seizure for him, twitching of the left face and arm, so stroke alert called off.
[2019-03-23] MEDS ORDERED: LORazepam 2 mg/ml vial IV ONE ×2 (23:20→23:25)
--- NOTE | 2019-03-23 23:41 | NUR ---
NURSING NOTE: PT WAS REGISTERED WITH THE WRONG NAME, AND ALL CHARTING WAS COMPLETED UNDER [id number]. REGISTRATION WAS NOTIFIED OF INCORRECT NAME WHEN ARRIVED TO BEDSIDE AND CONFIRMED PT INFORMATION. REGISTRATION THEN CREATED A NEW ACCOUNT WITH CORRECT INFORMATION AND THE PT CHARTING WAS UPDATED. MEDICATIONS 2MG ATIVAN AND 1000MG KEPPRA WERE PULLED UNDER ACCOUNT [id number] AND ADMINISTERED UNDER [id number]. PHARMACY WAS NOTIFIED OF THE INCIDENT.
--- NOTE | 2019-03-24 01:19 | NUR ---
TELE NEURO ON WITH PT AT BEDSIDE
[2019-03-24] MEDS ORDERED: NORMAL SALINE IV ONE (01:40)
[2019-03-24] MEDS ORDERED: VALPROATE SOD IV ONE (01:40)
[2019-03-24] MEDS ORDERED: levetiracetam inj 1,000 MG in normal saline 100ml IV soln 90 ML IV SCH (08:00)
[2019-03-24 10:52] VITALS: BP 171/84
== END 2019-03-24 10:58 | disposition home or self-care (01) ==
LOC: ER 22:52
DX: G40.901 Epilepsy, unspecified, not intractable, with status epilepticus (principal); G83.84 Todd's paralysis (postepileptic); I25.10 Atherosclerotic heart disease of native coronary artery without angina pectoris; I11.0 Hypertensive heart disease with heart failure; I50.9 Heart failure, unspecified; E11.9 Type 2 diabetes mellitus without complications; E78.00 Pure hypercholesterolemia, unspecified; I25.2 Old myocardial infarction; Z86.73 Personal history of transient ischemic attack (TIA), and cerebral infarction without residual deficits; Z95.1 Presence of aortocoronary bypass graft; Z90.89 Acquired absence of other organs; Z79.82 Long term (current) use of aspirin; Z79.4 Long term (current) use of insulin; Z79.899 Other long term (current) drug therapy
CPT/HCPCS: 36415; 71045; 80053; 80164; 82140; 82948; 83735; 84100; 84443; 84484; 85025; 96365; 96367; 96375; 99284; J1953; J2060; 80320

== ENCOUNTER 2019-05-30 07:31 | Day surgery (SDC) | payer MEDICARE, BC ==
[~2019-05-30] VITALS: Ht 170.2 cm; Wt 91.5 kg
[2019-05-30 06:11] VITALS: BP 168/88
[2019-05-30 08:05] VITALS: BP 168/88
--- NOTE | 2019-05-30 09:00 | NUR ---
procedure cancelled per Mimi Addendum: 05/30/19 at 1206 by Jeannette Ritter RN per TITUS Kelsey
== END 2019-05-30 10:10 | disposition home or self-care (01) ==
LOC: SSTAY O 07:31
PROVIDERS: ATTEND Radiology Diagnostic Radiology
DX: J90 Pleural effusion, not elsewhere classified (principal); E11.40 Type 2 diabetes mellitus with diabetic neuropathy, unspecified; E11.22 Type 2 diabetes mellitus with diabetic chronic kidney disease; I13.0 Hypertensive heart and chronic kidney disease with heart failure and stage 1 through stage 4 chronic kidney disease, or unspecified chronic kidney disease; I50.32 Chronic diastolic (congestive) heart failure; I25.10 Atherosclerotic heart disease of native coronary artery without angina pectoris; I25.2 Old myocardial infarction; I48.0 Paroxysmal atrial fibrillation; E78.5 Hyperlipidemia, unspecified; Z85.46 Personal history of malignant neoplasm of prostate; Z98.890 Other specified postprocedural states; Z79.899 Other long term (current) drug therapy; Z79.82 Long term (current) use of aspirin; Z95.1 Presence of aortocoronary bypass graft
CPT/HCPCS: 76604

== ENCOUNTER 2019-06-01 08:29 | Day surgery (SDC) | payer MEDICARE, BC ==
[~2019-06-01] VITALS: Ht 170.2 cm; Wt 92.6 kg
[2019-06-01 09:15] VITALS: BP 162/83
[2019-06-01 09:46] VITALS: BP 142/78
[2019-06-01 10:00] VITALS: BP 145/76
[2019-06-01 10:15] VITALS: BP 145/78
[2019-06-01 10:47] VITALS: BP 165/71
== END 2019-06-01 10:55 | disposition home or self-care (01) ==
LOC: SSTAY O 08:29
PROVIDERS: ATTEND Radiology Diagnostic Radiology
DX: J90 Pleural effusion, not elsewhere classified (principal); E11.22 Type 2 diabetes mellitus with diabetic chronic kidney disease; I13.0 Hypertensive heart and chronic kidney disease with heart failure and stage 1 through stage 4 chronic kidney disease, or unspecified chronic kidney disease; I50.32 Chronic diastolic (congestive) heart failure; N18.9 Chronic kidney disease, unspecified; I25.10 Atherosclerotic heart disease of native coronary artery without angina pectoris; I25.2 Old myocardial infarction; I48.0 Paroxysmal atrial fibrillation; Z95.1 Presence of aortocoronary bypass graft; E66.3 Overweight; Z68.31 Body mass index [BMI] 31.0-31.9, adult; Z85.46 Personal history of malignant neoplasm of prostate; E11.40 Type 2 diabetes mellitus with diabetic neuropathy, unspecified; E11.21 Type 2 diabetes mellitus with diabetic nephropathy; Z98.890 Other specified postprocedural states; E78.5 Hyperlipidemia, unspecified; Z79.82 Long term (current) use of aspirin; Z79.899 Other long term (current) drug therapy
CPT/HCPCS: 32555; 71045

== ENCOUNTER 2019-06-04 00:42 | Outpatient (CLI) | payer MEDICARE, BC | END 2019-06-04 23:59 | disposition home or self-care (01) | LOC: DIABETIC 00:42 | PROVIDERS: ATTEND Internal Medicine | DX: E10.9 Type 1 diabetes mellitus without complications (principal) | CPT/HCPCS: G0108 ==

== ENCOUNTER 2019-07-25 07:15 | Day surgery (SDC) | payer MEDICARE, BC ==
[~2019-07-25] VITALS: Ht 170.2 cm; Wt 89.1 kg
[2019-07-25] VITALS (10 sets, daily range): BP systolic 139–164; BP diastolic 66–96
[2019-07-25 09:43] LABS: BASOPHILS % (AUTO) 0.5 % (0-1); EOSINOPHILS # (AUTO) 0.1 X10'3 (0-0.9); EOSINOPHILS % (AUTO) 1.6 % (0-6); HEMOGLOBIN 14.5 g/dl (14.0-17.9); LYMPHOCYTES # (AUTO) 0.8 X10'3 (1.1-4.8); LYMPHOCYTES % (AUTO) 12.5 % (21-51); MEAN CORPUSCULAR HEMOGLOBIN 28.5 PG (27.0-31.0); MEAN CORPUSCULAR VOLUME 86.3 FL (78-98); MEAN PLATELET VOLUME 8.1 FL (7.4-10.4); MONOCYTES # (AUTO) 0.7 X10'3 (0-0.9); MONOCYTES % (AUTO) 10.4 % (2-12); NEUTROPHILS # (AUTO) 5.1 X10'3 (1.8-7.7); PLATELET COUNT 133 X10'3 (140-440); RED BLOOD COUNT 5.09 X10'6 (4.70-6.10); RED CELL DISTRIBUTION WIDTH 17.7 % (11.5-14.5); WHITE BLOOD COUNT 6.7 X10'3 (4.5-11.0)
[2019-07-25 09:59] LABS: ALANINE AMINOTRANSFERASE 24 U/L (12-78); ALBUMIN 2.5 G/DL (3.4-5.0); ALBUMIN/GLOBULIN RATIO 0.7 (1.1-1.5); ALKALINE PHOSPHATASE 111 IU/L (46-116); ANION GAP 8 (8-16); ASPARTATE AMINO TRANSFERASE 34 U/L (10-37); BILIRUBIN,TOTAL 0.8 MG/DL (0.1-1.0); BLOOD UREA NITROGEN 25 MG/DL (7-18); BUN/CREATININE RATIO 16.7 (5.4-32.0); CALCIUM 8.5 MG/DL (8.5-10.1); CHLORIDE 107 MMOL/L (99-107); GLUCOSE 279 MG/DL (70-104); POTASSIUM 4.9 MMOL/L (3.5-5.1); SODIUM 144 MMOL/L (135-145); TOTAL CARBON DIOXIDE 28.7 MMOL/L (24-32); eGFR 47 ML/MIN
[2019-07-25 10:08] LABS: TOTAL PROTEIN,BODY FLUID 2.8 G/DL
[2019-07-25 11:22] LABS: BF RBC COUNT 3175 /CU MM; BF WBC COUNT 460 /CU MM (0-1000); BFAPPEAR HAZY; BFCOLOR YELLOW; BFVOLUME 1218 ML
[2019-07-25 11:25] LABS: LYMPHOCYTES,BODY FLUID 75 %; MONOCYTES,BODY FLUID 18 %; NEUTROPHILS,BODY FLUID 7 %
[2019-07-25 13:57] LABS: BF MESOTHELIAL CELLS FEW
== END 2019-07-25 09:50 | disposition home or self-care (01) ==
LOC: SSTAY O 07:15
PROVIDERS: ATTEND Internal Medicine Pulmonary Disease
DX: J90 Pleural effusion, not elsewhere classified (principal); I25.10 Atherosclerotic heart disease of native coronary artery without angina pectoris; I13.0 Hypertensive heart and chronic kidney disease with heart failure and stage 1 through stage 4 chronic kidney disease, or unspecified chronic kidney disease; E10.22 Type 1 diabetes mellitus with diabetic chronic kidney disease; N18.9 Chronic kidney disease, unspecified; E78.5 Hyperlipidemia, unspecified; I69.354 Hemiplegia and hemiparesis following cerebral infarction affecting left non-dominant side; Z79.01 Long term (current) use of anticoagulants; Z95.1 Presence of aortocoronary bypass graft; Z79.899 Other long term (current) drug therapy; Z85.46 Personal history of malignant neoplasm of prostate; Z98.890 Other specified postprocedural states; Z79.4 Long term (current) use of insulin; Z79.82 Long term (current) use of aspirin
CPT/HCPCS: 32555; 71045; 80053; 83880; 84157; 85025; 87070; 89051; C1729

== ENCOUNTER 2019-09-10 02:29 | Outpatient (CLI) | payer MEDICARE, BC | END 2019-09-10 23:59 | disposition home or self-care (01) | LOC: DIABETIC 02:29 | PROVIDERS: ATTEND Internal Medicine | DX: E11.9 Type 2 diabetes mellitus without complications (principal); I13.0 Hypertensive heart and chronic kidney disease with heart failure and stage 1 through stage 4 chronic kidney disease, or unspecified chronic kidney disease; I50.9 Heart failure, unspecified; N18.9 Chronic kidney disease, unspecified; Z79.4 Long term (current) use of insulin; Z79.82 Long term (current) use of aspirin | CPT/HCPCS: G0108 ==